=== PATIENT | female | born 1950 | race Caucasian/White ===

== ENCOUNTER 2020-06-06 09:21 | Day surgery (SDC) | payer OTHER ==
--- OUTSIDE RECORDS SUMMARY | 2020-06-06 09:33 | XMS REPORT | Summary of Care ---
:1950 Author Organization [facility] - [facility] Address [address] [place] [address] Care Team Providers Name Role Phone Esther Yanez Primary Care Provider Reason for Visit Reason Comments Pre-op Clearance [facility] Encounter Details Date Type Department Care Team Description 05/15/2020 Telephone [facility] Silvino Pandya M D Pre-op Clearance Cardiology- [address] ([address], [facility]) [address] [place], [place] [phone] [phone] Allergies No Known Allergiesdocumented as of this encounter (statuses as of 05/31/2020) Medications Medication Sig Dispensed Refills Start Date End Date Status metoprolol tartrate 50 Take 50 mg by 0 Active mg tablet mouth 2 (two) times daily. aspirin 81 mg chewable Take 81 mg by 0 Active tablet mouth daily. methIMAzole 10 mg 1 09/17/2018 A ctive tablet documented as of this encounter (statuses as of 05/31/2020) Active Problems Not on filedocumented as of this encounter (statuses as of 05/31/2020) Social History Tobacco Use Types Packs/Day Years Used Date Never Smoker Smokeless Tobacco: Never Used Alcohol Use Drinks/Week oz/Week Comments No Sex Assigned at Date Recorded Not on file documented as of this encounter Last Filed Vital Signs Not on filedocumented in this encounter Miscellaneous Notes Telephone Encounter - Ezekiel Milton - 05/31/2020 11:49 AM CSTPatient is being seen today. Please fax surgery clearance to [phone]. Patient is having two procedures done. Please fax both. elephone Encounter - Mary Mclean MA - 05/15/2020 10:07 AM CSTAttempted to contact patient to schedule cardiac clearance. No answer No voicemail set up. Last seen. Varun follow up/ekg. Left vm to Luz Maria at FOOD SAFETY SCIENTIST office. Will scan request to leemail to store info til patient calls to make appointment. No mychart access. documented in this encounter Plan of Treatment Date Type Specialty Care Team Description 05/31/2020 Office Visit Cardiology Silvino Pandya M D [address] [place] [address] [phone] Health Maintenance Due Date Last Done Comments HEPATITIS C (HCV) SCREEN 1950 Depression Screening 1962 DTaP,Tdap,and Td Vaccines (1 - Tdap) 1969 Breast Cancer Screening (MAMMOGRAM) 1990 COLON CANCER SCREENING ANNUAL FIT/FOBT 2000 COLON CANCER SCREENING FIT DNA EVERY 3 YEARS 2000 COLON CANCER SCREENING SIGMOIDOSCOPY EVERY 5 YEARS 2000 COLONOSCOPY 2000 Colorectal Cancer Screening 2000 Zoster Recombinant Vaccine (SHINGRIX) (1 of 2) 2000 Medicare Wellness Visit 2015 Osteoporosis Screening 2015 PNEUMOCOCCAL VACCINES 65+ (1 of 1 - PPSV23) 2015 INFLUENZA VACCINE (#1) 2020 documented as of this encounter Results Not on filedocumented in this encounter Insurance Payer Benefit Plan / Subscriber ID Effective Dates Phone Addre ss Type Group MEDICARE MEDICARE PART [id number] 2015-[employer] [phone] [address] Medicare A & B t 2 [id number] [place] [phone] documented as of this encounter
--- OUTSIDE RECORDS SUMMARY | 2020-06-06 09:33 | XMS REPORT | Summary of Care ---
:1950 Author Organization [facility] - [facility] Address [address] [place] [address] Care Team Providers Name Role Phone Esther Yanez Primary Care Provider Reason for Visit Reason Comments Pre-op Clearance [facility] Encounter Details Date Type Department Care Team Description 05/15/2020 Telephone [facility] Silvino Pandya M D Pre-op Clearance Cardiology- [address] ([address], [facility]) [address] [place], [place] [phone] Allergies No Known Allergiesdocumented as of this encounter (statuses as of 05/15/2020) Medications Medication Sig Dispensed Refills Start Date End Date Status metoprolol tartrate 50 Take 50 mg by 0 Active mg tablet mouth 2 (two) times daily. aspirin 81 mg chewable Take 81 mg by 0 Active tablet mouth daily. methIMAzole 10 mg 1 09/17/2018 A ctive tablet documented as of this encounter (statuses as of 05/15/2020) Active Problems Not on filedocumented as of this encounter (statuses as of 05/15/2020) Social History Tobacco Use Types Packs/Day Years Used Date Never Smoker Smokeless Tobacco: Never Used Alcohol Use Drinks/Week oz/Week Comments No Sex Assigned at Date Recorded Not on file documented as of this encounter Last Filed Vital Signs Not on filedocumented in this encounter Miscellaneous Notes Telephone Encounter - Mary Mclean MA - 05/15/2020 10:07 AM CSTAttempted to contact patient to schedule cardiac clearance. No answer No voicemail set up. Last seen. Varun follow up/ekg. Left vm to Luz Maria at REMOTELY PILOTED VEHICLE CONTROLLER office. Will scan request to [employer] to store info til patient calls to make appointment. No VisitorsCafehart access. TIC STRENGTH INSPECTOR documented in this encounter Plan of Treatment Health Maintenance Due Date Last Done Comments [...] Addre ss Type Group MEDICARE MEDICARE PART [id number] 2015-[employer] [phone] [address] Medicare A & B t 2 [id number] [place] GARS[place] [id number] documented as of this encounter
--- OUTSIDE RECORDS SUMMARY | 2020-06-06 09:33 | XMS REPORT | Summary of Care ---
:1950 Author Organization [facility] - Health Address [address] [place] [address] Care Team Providers Name Role Phone Esther Yanez Primary Care Provider Encounter Details Date Type Department Care Team Description 05/08/2020 Orders Only [facility] Doctor Unassigned, No [address] [facility] [place] [address] [address] [place] [address] Allergies No Known Allergiesdocumented as of this encounter (statuses as of 05/17/2020) Medications Medication Sig Dispensed Refills Start Date End Date Status metoprolol tartrate 50 Take 50 mg by 0 Active mg tablet mouth 2 (two) times daily. aspirin 81 mg chewable Take 81 mg by 0 Active tablet mouth daily. methIMAzole 10 mg 1 09/17/2018 A ctive tablet documented as of this encounter (statuses as of 05/17/2020) Active Problems Not on filedocumented as of this encounter (statuses as of 05/17/2020) Social History Tobacco Use Types Packs/Day Years Used Date Never Smoker Smokeless Tobacco: Never Used Alcohol Use Drinks/Week oz/Week Comments No Sex Assigned at Date Recorded Not on file documented as of this encounter Last Filed Vital Signs Not on filedocumented in this encounter Plan of Treatment Date Type Specialty Care Team Description 05/31/2020 Office Visit Cardiology Silvino Pandya M D [address] [place] [address] [place] [address] [phone] Health Maintenance Due Date Last Done Comments [...] (#1) 2020 documented as of this encounter Procedures Procedure Name Priority Date/Time Associated Diagnosis Comme nts MEDICAL Routine 05/08/2020 12:01 AM RESTORER PAPER AND PRINTS RELEASE/CLEARANCE FORMS documented in this encounter Results Not on filedocumented in this encounter Insurance Payer Benefit Plan / Subscriber ID Effective Dates Phone Addre ss Type Group MEDICARE MEDICARE PART [id number] 2015-[employer] [phone] [facility] Medicare A & B t 2 [id number] [place] [phone] documented as of this encounter
--- OUTSIDE RECORDS SUMMARY | 2020-06-06 09:33 | XMS REPORT | Continuity of Care Document ---
:1950 Author Organization [facility] t Address [address] [place] [address] Care Team Providers Name Role Phone Mumtaz COYNE Attending Clinician Problems This patient has no known problems. Allergies, Adverse Reactions, Alerts This patient has no known allergies or adverse reactions. Medications This patient has no known medications. Procedures This patient has no known procedures. Encounters Start End Encounter Admission Attending Care Care Encounter Source Date/Time Date/Time Type Type Clinicians Facility Department ID 2020-05-15 2020-05-15 Telephone SRIRAM Pandya [id number] 00:00:00 00:00:00 Silvino Quinteros [id number] Starla [id number] Rosamaria [id number] [address]al 059 Building Results This patient has no known results.
--- OUTSIDE RECORDS SUMMARY | 2020-06-06 09:34 | XMS REPORT | Summary of Care ---
:1950 Author Organization [facility] - Health Address [address] [place] [address] Care Team Providers Name Role Phone Esther Yanez Primary Care Provider Encounter Details Date Type Department Care Team Description 05/31/2020 Orders Only [facility] Doctor Unassigned, No [address] [facility] [place] [address] [address] [place] [id number] Allergies No Known Allergiesdocumented as of this [...] Assigned at Date Recorded Not on file COVID-19 Exposure Response Date Recorded In the last month, have you been in contact with No / Unsure 05/31/2020 3:16 PM VENDING MACHINE COLLECTOR someone who was confirmed or suspected to have Coronavirus / COVID-19? documented as of this encounter Last Filed Vital Signs Not on filedocumented in this encounter Plan of Treatment Health [...] Name Priority Date/Time Associated Diagnosis Comme nts ASSIGNMENT OF BENEFITS Routine 05/31/2020 3:19 PM VENDING MACHINE COLLECTOR CONSENT/REFUSAL FOR Routine 05/31/2020 3:19 PM DIAGNOSIS AND TREATMENT VENDING MACHINE COLLECTOR documented in this encounter Results Not on filedocumented in this encounter Insurance Payer Benefit Plan / Subscriber ID Effective Dates Phone Addre ss Type Group MEDICARE MEDICARE PART [id number] 2015-[employer] [phone] [address] [facility] Medicare A & B t 2 [id number] [place] [id number] documented as of this encounter
--- OUTSIDE RECORDS SUMMARY | 2020-06-06 09:34 | XMS REPORT | Summary of Care ---
:1950 Author Organization [facility] Address [address] [place] [address] Care Team Providers Name Role Phone Esther Yanez Primary Care Provider Alexandria Hoff Primary Care Provider Reason for Visit Reason Comments Pre-op Clearance [facility] Encounter Details Date Type Department Care Team Description 05/15/2020 Telephone [facility] Silvino Pandya M D Pre-op Clearance Cardiology- [address] ([address], [facility]) [address] [place], [place] [phone] Allergies No Known Allergiesdocumented as of this encounter (statuses as of 06/02/2020) Medications Medication Sig Dispensed Refills Start Date End Date Status aspirin 81 mg Take 81 mg 0 Activ e chewable tablet by mouth daily. metoprolol Take 50 mg 0 05/31/2020 Discont inued tartrate 50 mg by mouth 2 (Dis continued by tablet (two) times another clinician) daily. methIMAzole 10 mg 1 09/17/2018 05/31/2020 Discontinued tablet (Therapy completed) documented as of this encounter (statuses as of 06/02/2020) Active Problems Not on filedocumented as of this encounter (statuses as of 06/02/2020) Social History Tobacco Use Types Packs/Day Years Used Date Never Smoker Smokeless Tobacco: Never Used Alcohol Use Drinks/Week oz/Week Comments No Sex Assigned at Date Recorded Not on file COVID-19 Exposure Response Date Recorded In the last month, have you been in contact with No / Unsure 05/31/2020 3:16 PM RESEARCH STATISTICIAN someone who was confirmed or suspected to have Coronavirus / COVID-19? documented as of this encounter Last Filed Vital Signs Not on filedocumented in this encounter Miscellaneous Notes Telephone Encounter - Ezekiel Milton - 06/02/2020 12:23 PM CSTRefaxed to [facility]ICE [facility] RN doctor & received confirmation 06/02. elephone Encounter - Myesha Vasquez RN - 06/02/2020 10:54 AM CSTSam is faxing it again. elephone Encounter - Ezekiel Milton - 06/02/2020 10:22 AM CSTGYN office is requesting clearance to be re-faxed talib. elephone Encounter - Myesha Vasquez RN - 05/31/2020 2:28 PM CSTWill fax once the patient is seen elephone Encounter - Ezekiel Milton - 05/31/2020 11:49 AM RESEARCH STATISTICIAN Patient is being seen today. Please fax surgery clearance to [phone]. Patient is having two procedures done. Please fax both. elephone Encounter - Mary Mclean MA - 05/15/2020 10:07 AM CSTAttempted to contact patient to schedule cardiac clearance. No answer No voicemail set up. Last seen. Varun follow up/ekg. Left vm to Luz Maria at [employer]ICE [employer] RN office. Will scan request to [email or web address] to store info til patient calls to make appointment. No mychart access. documented in this encounter Plan of Treatment Health Maintenance Due Date Last Done Comments HEPATITIS C (HCV) SCREEN 1950 DTaP,Tdap,and Td Vaccines (1 - 1969 Tdap) Breast Cancer Screening 1990 (MAMMOGRAM) COLON CANCER SCREENING ANNUAL 2000 FIT/FOBT COLON CANCER SCREENING FIT DNA 2000 EVERY 3 YEARS COLON CANCER SCREENING 2000 SIGMOIDOSCOPY EVERY 5 YEARS COLONOSCOPY 2000 Colorectal Cancer Screening 2000 Zoster Recombinant Vaccine 2000 (SHINGRIX) (1 of 2) Medicare Wellness Visit 2015 Osteoporosis Screening 2015 PNEUMOCOCCAL VACCINES 65+ (1 of 1 2015 - PPSV23) INFLUENZA VACCINE (#1) 2020 Postponed from 01/18/2020 (Refused) Depression Screening 05/31/2021 05/31/2020 documented as of this encounter Results Not on filedocumented in this encounter Insurance Payer Benefit Plan / Subscriber ID Effective Dates Phone Addre ss Type Group MEDICARE MEDICARE PART [id number] 2015-[employer] [phone] [address] [address] [facility] Medicare A & B t 2 [id number] [place] [phone] documented as of this encounter
--- OUTSIDE RECORDS SUMMARY | 2020-06-06 09:34 | XMS REPORT | Summary of Care ---
:1950 Author Organization [facility] Address [address] [place] [address] Care Team Providers Name Role Phone Alexandria Hoffy Primary Care Provider Reason for Visit Reason Comments Follow-up Re Establish Care Surgery Clearance [facility] Mcbride[facility] Ekg Done today in Office Encounter Details Date Type Department Care Team Description 05/31/2020 Office Visit [facility] Silvino Pandya M D Essential hypertension (Primary Dx); Cardiology- [address] Preop cardiovascular exam; [address] [place] [address] [place], [place] [phone] Allergies No Known Allergiesdocumented as of this encounter (statuses as of 05/31/2020) Medications Medication Sig Dispensed Refills Start Date End Date Status aspirin 81 mg Take 81 mg 0 Activ e chewable tablet by mouth daily. lisinopriL 40 mg Take 40 mg 0 Ac tive tablet by mouth daily. metoprolol Take 50 [...] with No / Unsure 05/31/2020 3:16 PM HAND STRAIGHTENER someone who was confirmed or suspected to have Coronavirus / COVID-19? documented as of this encounter Last Filed Vital Signs Vital Sign Reading Time Taken Comments Blood Pressure 135/90 05/31/2020 3:32 PM HAND STRAIGHTENER Pulse 100 05/31/2020 3:32 PM HAND STRAIGHTENER Temperature - - Respiratory Rate 20 05/31/2020 3:32 PM HAND STRAIGHTENER Oxygen Saturation 96% 05/31/2020 3:32 PM HAND STRAIGHTENER Inhaled Oxygen Concentration - - Weight 67.5 kg (148 lb 14.4 oz) 05/31/2020 3:32 PM HAND STRAIGHTENER Height 160 cm (5' 3") 05/31/2020 3:32 PM HAND STRAIGHTENER Body Mass Index 26.38 05/31/2020 3:32 PM HAND STRAIGHTENER documented in this encounter Progress Notes Silvino Pandya MD - 05/31/2020 3:00 PM CST CARDIOLOGY CLINIC NOTE 05/31/2020 Reason for Referral/Presenting Complaint: abnormal EKG, preop cardiac evaluation PCP: Alexandria Mcbride MD History of Present Illness: Cecily Santo is a 69 years old female with history of HTN. She takes lisinopril with good control. Her father has CAD s/p PCI and valve replacement in his 80s. She was here for abnormal EKG in 2019. ECHO was unremarkable. Denies chest pain, SOB, edema or syncope. She is going to have pelvic surgery. Review of Systems: General: (-) fever, (-) chills, (-) weight change, (-) dizziness, (-) fatigue Skin: (-) rash HEENT: (-) headache, (-) change in vision Neck: (-) difficulty swallowing Heme: negative Resp: (-) cough, (-) dyspnea on exertion Cardio: (-) chest pain, (-) palpitations, (-) syncope GI: (-) vomiting, (-) diarrhea : negative Endo: (-) diabetes, (-) thyroid disease Neuro: (-) numbness, (-) tingling, (-) weakness Back: (-) pain OZ: (-) muscle pain, (-) claudication Psych: (-) anxiety, (-) depression Past Medical History: Past Medical History: Diagnosis Date Arthritis Hypertension Current Medications: Current Outpatient Medications Medication Sig Dispense Refill lisinopriL 40 mg tablet Take 40 mg by mouth daily. aspirin 81 mg chewable tablet Take 81 mg by mouth daily. No current facility-administered medications for this visit. Social History: Social History Socioeconomic History Marital status: Single Spouse name: Not on file Number of children: Not on file Years of education: Not on file Highest education level: Not on file Occupational History Not on file Social Needs Financial resource strain: Not on file Food insecurity Worry: Not on file Inability: Not on file Transportation needs Medical: Not on file Non-medical: Not on file Tobacco Use Smoking status: Never Smoker Smokeless tobacco: Never Used Substance and Sexual Activity Alcohol use: No Drug use: No Sexual activity: Not on file Lifestyle Physical activity Days per week: Not on file Minutes per session: Not on file Stress: Not on file Relationships Social connections Talks on phone: Not on file Gets together: Not on file Attends taoism service: Not on file Active member of club or organization: Not on file Attends meetings of clubs or organizations: Not on file Relationship status: Not on file Intimate partner violence Fear of current or ex partner: Not on file Emotionally abused: Not on file Physically abused: Not on file Forced sexual activity: Not on file Other Topics Concern Not on file Social History Narrative Not on file Family History Family History Problem Relation Age of Onset Arthritis Mother Hypertension Father Diabetes Father [place] (myocardial infarction) Father Valve replacement PCI Physical Examination: BP 135/90 (BP Location: Left arm, Patient Position: Sitting, BP CUFF SIZE: Adult Small) | Pulse 100 | Resp 20 | Ht 5' 3" (1.6 m) | Wt 148 lb 14.4 oz (67.5 kg) | SpO2 96% | BMI 26.38 kg/m Constitutional: alert and oriented x 3 (person, place and date/time); no apparent distress ENT: normocephalic atraumatic, supple, no lymphadenopathy, no bruits, no JVD Lungs: clear to auscultation bilaterally Cardiovascular: S1, S2 normal, regular; 2/6 SM GI: soft; non-tender; non-distended; normoactive bowel sounds : not examined Musculoskeletal: Extremities: no clubbing, cyanosis, or edema Skin: no rashes Neuro: no focal deficits Cardiovascular testing: Assessment/Plan: ICD-10-CM ICD-9-CM 1. Essential hypertension I10 401.9 2. Preop cardiovascular exam Z01.810 V72.81 3. Abnormal EKG R94.31 794.31 Preop cardiac risk assessment--She has risk factors of HTN, age, and family history. ECHO showed normal LVEF. Her cardiac risk is low to intermediate. Patient was counseled for lifestyle modifications including: diet and exercise. EKG--05/31/2020--reviewed by me Normal sinus rhythm, LAE, LAD, IRBBB, possible anteroseptal infarct ECHO 11/23/2018--reviewed with patient Ejection Fraction = 60-65%. Diastolic function is impaired relaxation. The left ventricular wall motion is normal. Estimated RA pressure is 0-5 mmHg. Insufficient Tricuspid regurgitation jet to estimate RVSP. HTN--well controlled with lisinopril. Thank you for allowing us to participate in the care of your patient. Please feel free to contact usfor any questions or if we can be of further assistance. Silvino Pandya MD, FAC, TUCKER Creeler, Division of Cardiology [facility] documented in this encounter Plan of Treatment Name Type Priority Associated Diagnoses Order S chedule EKG-12 LEAD HEART STATION Routine Preop cardiovascular exam O rdered: 05/31/2020 ROUTINE Health Maintenance Due Date Last Done Comments [...] Results Not on filedocumented in this encounter Visit Diagnoses Diagnosis Essential hypertension - Primary Unspecified essential hypertension Preop cardiovascular exam Pre-operative cardiovascular examination Abnormal EKG Nonspecific abnormal electrocardiogram ( ECG) (EKG) documented in this encounter Insurance Payer Benefit Plan / Subscriber ID Effective Dates Phone Addre ss Type Group MEDICARE MEDICARE PART [id number] 2015-[employer] [phone] [address] Medicare A & B t 2 [id number] [place] G[place] [id number] documented as of this encounter
--- OUTSIDE RECORDS SUMMARY | 2020-06-06 09:34 | XMS REPORT | Summary of Care ---
:1950 Author Organization [facility] Address [address] [place] [address] Care Team Providers Name Role Phone Esther Yanez Primary Care Provider Alexandria Hoff Primary Care Provider Reason for Visit Reason Comments Pre-op Clearance [facility] Encounter Details Date Type Department Care Team Description 05/15/2020 Telephone [facility] Silvino Pandya M D Pre-op Clearance Cardiology- [address] ([address], [facility]) [address] [place], [place] [phone] Allergies No Known Allergiesdocumented as of this [...] with No / Unsure 05/31/2020 3:16 PM PST SUPERVISOR someone who was confirmed or suspected to have Coronavirus / COVID-19? documented as of this encounter Last Filed Vital Signs Not on filedocumented in this encounter Miscellaneous Notes Telephone Encounter - Ezekiel Milton - 06/02/2020 10:22 AM CSTGYN office is requesting clearance to be re-faxed talib. elephone Encounter - Myesha Vasquez RN - 05/31/2020 2:28 PM CSTWill fax once the patient is seen elephone Encounter - Ezekiel Milton - 05/31/2020 11:49 AM CSTPatient is being seen today. Please fax surgery clearance to [phone]. Patient is having two procedures done. Please fax both. SUPERVISOR Telephone Encounter - Mary Mclean MA - 05/15/2020 10:07 AM CSTAttempted to contact patient to schedule cardiac clearance. No answer No voicemail set up. Last seen. Nees follow up/ekg. Left vm to Luz Maria at TOLL BRIDGE ATTENDANT office. Will scan request to [email or web address] to store info til patient calls to make appointment. [facility]. SUPERVISOR documented in this encounter Plan of Treatment [...] Addre ss Type Group MEDICARE MEDICARE PART [id number] 2015-[employer] [phone] [address] Medicare A & B t 2 [id number] [place] [phone] documented as of this encounter
--- OUTSIDE RECORDS SUMMARY | 2020-06-06 09:34 | XMS REPORT | Summary of Care ---
:1950 Author Organization [facility] Address [address] [place] [id number] Care Team Providers Name Role Phone Alexandria Hoffy Primary Care Provider Reason for Visit Reason Comments Follow-up Re Establish Care Surgery Clearance [facility] Ekg Done today in Office Encounter Details Date Type Department Care Team Description 05/31/2020 Office Visit [facility] Silvino Pandya M D Essential hypertension (Primary Dx); Cardiology- [address] Preop cardiovascular exam; [address] [place] [address] [place], [place] [phone] Allergies No Known Allergiesdocumented as of this [...] with No / Unsure 05/31/2020 3:16 PM SPONGE FISHERMAN someone who was confirmed or suspected to have Coronavirus / COVID-19? documented as of this encounter Last Filed Vital Signs Vital Sign Reading Time Taken Comments Blood Pressure 135/90 05/31/2020 3:32 PM SPONGE FISHERMAN Pulse 100 05/31/2020 3:32 PM SPONGE FISHERMAN Temperature - - Respiratory Rate 20 05/31/2020 3:32 PM SPONGE FISHERMAN Oxygen Saturation 96% 05/31/2020 3:32 PM SPONGE FISHERMAN Inhaled Oxygen Concentration - - Weight 67.5 kg (148 lb 14.4 oz) 05/31/2020 3:32 PM SPONGE FISHERMAN Height 160 cm (5' 3") 05/31/2020 3:32 PM SPONGE FISHERMAN Body Mass Index 26.38 05/31/2020 3:32 PM SPONGE FISHERMAN documented in this encounter Progress Notes Silvino [...] file Gets together: Not on file Attends uatsdin service: Not on file Active member of [...] Onset Arthritis Mother Hypertension Father Diabetes Father [place] (myocardial infarction) Father Valve replacement PCI Physical [...] further assistance. Silvino Pandya MD, FAC, TUCKER Batch Blender, Division of Cardiology [facility] documented in this encounter Plan of [...] Addre ss Type Group MEDICARE MEDICARE PART [id number] 2015-[place] [phone] [address] Medicare A & B t 2 [id number] [place] [phone] documented as of this encounter
[2020-06-06] MEDS ORDERED: Ringers Lactate 1,000 ML IV ONE (10:12)
[2020-06-06] MEDS ORDERED: FENTANYL CITR 100 MCG/2 ML ONE (11:03)
[2020-06-06] MEDS ORDERED: propofoL 200 MG/20 ML VIAL IV ONE (11:03)
[2020-06-06] MEDS ORDERED: MIDAZOLAM HCL 2 MG/2 ML INJ ONE (11:04)
[2020-06-06] MEDS ORDERED: LIDOCAINE 2% MPF 5 ML VIAL ONE (11:04)
[2020-06-06] MEDS ORDERED: ONDANSETRON 4 MG/2 ML VIAL ONE (11:12)
[2020-06-06] MEDS: LIDOCAINE 1% W/EPI 1:100,000 MDV 50 ML VIAL ONE ×2 (11:30→11:37)
[2020-06-06 12:34] VITALS: O2SAT 100
--- NOTE | 2020-06-06 12:55 | OP ---
Date of Procedure: 06/06/2020 Surgeon: Judith Mcbride MD Gamma Operator: None. Preoperative Diagnosis: Postmenopausal bleeding and endometrial thickening. Postoperative Diagnosis: Postmenopausal bleeding, prolapse and endometrial polyp. Procedures Performed: Diagnostic hysteroscopy converted to operative hysteroscopy, polypectomy, and D and C, MyoSure Lite was used for the polypectomy as the polyp was large. Anesthesia: MAC plus paracervical block. Specimens: Endometrial curettings and endometrial polyp. Complications: No complications. Drains: No drains. Condition: Stable. Findings: Her POP-Q was 0, 0, +1, 5, thin, 8, -1, 0, -3. Large posterior wall prolapse with apical prolapse that was most significant. On the endometrial cavity findings, there was a large endometrial polyp arising from the fundus, post erior wall of the endometrial cavity traversing the entire uterine canal and protruding into the cerv ical canal. The endometrium appeared to be slightly irregular. No other masses were seen. This was a solitary P ap polyp. After evaluation with transvaginal ultrasound, her endometrium was found to be thickened, so she was consented for endometrial polypectomy, D and C at the hospital so she was consented here today and ta kleber back to the OR placed in supine fashion on the operating table. MAC was given. Placed in a dors al lithotomy position. Vulva, vagina were prepped and draped in a sterile fashion. Speculum placed to expose the cervix. Anterior lip grasped, injected with 1% lidocaine mixed with 1:100,000 epinephr ine, 10 cc in 4 and 8 o'clock positions. Another 3 cc was given for paracervical block. Two Allis c lamps were placed on the anterior lip and the external os was dilated with the tip of a hemostat. en using a diagnostic SlimLine hysteroscope, cervical canal was traversed and uterine cavity was ente red. Once inside the uterine cavity, there was large polyp as discussed in the findings. No other a bnormalities. Scope was removed and this was changed to an operative hysteroscope with MyoSure Lite attached. Once this device was attached and primed, then entered into the cervical canal and started to remove the polyp from the tip of the polyp to its base. The entire polyp was removed and the bas e was hemostatic. Endometrial curettings were performed with MyoSure Lite device itself in all 4 wal ls gently. Adequate tissue was obtained. There was minimal bleeding. Hemostasis was adequate. All instruments were removed. Instrument and sponge counts were done and were correct at the end of the case. The patient tolerated procedure. She was recovered from anesthesia in the OR and taken to [facility] in stable condition. She will have a 1-week followup appointment with md. Plan to discharge home. Regular diet. No prescription. JENNA/DONALD Voice ID: [id number] Report ID: [id number]
[2020-06-06] MEDS ORDERED: IBUPROFEN 200 MG TAB PO ONE (13:04)
[2020-06-06 13:17] VITALS: BP 116/55; TEMP 97.3
== END 2020-06-06 13:45 | disposition home or self-care (01) ==
LOC: OR 09:21
PROVIDERS: ATTEND Obstetrics & Gynecology
PROC: 0UDB8ZX Extraction of Endometrium, Via Natural or Artificial Opening Endoscopic, Diagnostic (ICD-10-PCS; 2020-06-06)
PROC: 0UB98ZX Excision of Uterus, Via Natural or Artificial Opening Endoscopic, Diagnostic (ICD-10-PCS; principal; 2020-06-06 10:30)
DX: N84.0 Polyp of corpus uteri (principal); N93.9 Abnormal uterine and vaginal bleeding, unspecified; N39.46 Mixed incontinence; I10 Essential (primary) hypertension
CPT/HCPCS: 58558; 88305; U0002; J2704; J2250; J7120; J2405; J3010

== ENCOUNTER 2020-07-11 12:01 | Day surgery (SDC) | payer OTHER ==
[2020-07-07 18:06] LABS: Absolute Lymphocytes (CBC) 2.3 K/uL (0.7-4.9); Basophils % 0.6 % (0-1.3); Hematocrit 41.8 % (36.0-45.0); Lymphocytes % 24.6 % (15.3-44.8); MPV 9.1 fL (7.6-11.3); Protime INR 1.04
[2020-07-07 19:41] LABS: Urine Appearance CLEAR; Urine Bilirubin NEGATIVE (NEG); Urine Blood NEGATIVE (NEG); Urine Color YELLOW; Urine Glucose NEGATIVE (NEG); Urine Protein NEGATIVE (NEG); Urine pH 6.5 (5.0-7.0)
[2020-07-07 19:46] LABS: Urine Microscopic Reflex NO UMIC
[2020-07-11] MEDS ORDERED: Ringers Lactate 1,000 ML IV ONE ×2 (13:50→18:05)
[2020-07-11] MEDS ORDERED: FENTANYL CITR 100 MCG/2 ML ONE ×2 (15:54→19:17)
[2020-07-11] MEDS ORDERED: propofoL 200 MG/20 ML VIAL IV ONE (15:54)
[2020-07-11] MEDS ORDERED: MIDAZOLAM HCL 2 MG/2 ML INJ ONE (15:55)
[2020-07-11] MEDS ORDERED: ROCURONIUM 50 MG/5 ML VIAL IV ONE (15:55)
[2020-07-11] MEDS ORDERED: LIDOCAINE 1% MPF 2 ML AMPULE ONE (15:55)
[2020-07-11] MEDS ORDERED: HEPARIN 5000 UNIT/ML 1 ML VIAL ONE ×2 (16:43)
[2020-07-11] MEDS ORDERED: NA CHLORIDE 0.9% 100 ML IV ONE (16:53)
[2020-07-11] MEDS ORDERED: VASOPRESSIN 20 UNIT/ML VIAL ONE (16:54)
[2020-07-11] MEDS ORDERED: CEFAZOLIN/SWI 1gm 1 GM/10 ML SYR ONE (16:54)
[2020-07-11] MEDS: CEFAZOLIN/SWI 1gm 2 GM/20 ML SYR ONE ×2 (17:10→17:15)
[2020-07-11] MEDS ORDERED: dexAMETHasone 10 MG/ML VIAL ONE (17:20)
[2020-07-11] MEDS ORDERED: KETOROLAC 30 MG/ML INJ ONE (18:42)
[2020-07-11] MEDS ORDERED: NEOSTIGMINE 1 MG/ML -5 ML ONE (20:09)
[2020-07-11] MEDS ORDERED: GLYCOPYRROLATE 0.2 MG/ML SYR ONE (20:09)
[2020-07-11] MEDS ORDERED: PROMETHAZINE INJ 25 MG/ML AMP IV PRN (20:36)
[2020-07-11] MEDS ORDERED: ONDANSETRON 4 MG/2 ML VIAL IV PRN (20:36)
[2020-07-11] MEDS ORDERED: MORPHINE 2 MG/ML SYR IV PRN (20:36)
[2020-07-11] MEDS ORDERED: ESTRADIOL VAG SCH (20:45)
--- NOTE | 2020-07-11 20:45 | P.BOP ---
Preoperative diagnosis: stage 2 incomplete uterovaginal prolapse, DANIEL, rectocele Postoperative diagnosis: same and anterior prolapse, post enterocele Primary procedure: A/P repairs w post enterocele,perineorrhapy,RT SSLF hysteropexy,MUS, cysto Derrick Engineer: Kayla Condon Estimated blood loss: 100 Specimen: none Findings: 0/+1/+1/5/mod/8/-1/0/-2, posterior enterocele Anesthesia: General Complications: None Drain(s): Urinary catheter Implants: TVT-O Fluids & blood products: ebl 100 Transferred to: Recovery Room Condition: Good
[2020-07-11] MEDS: HYDROMORPHONE HCL 1 MG/ML INJ ONE ×2 (20:55→21:00)
[2020-07-11] MEDS ORDERED: Ringers Lactate 1,000 ML IV SCH (21:00)
[2020-07-11 21:04] VITALS: O2SAT 97
[2020-07-11 23:30] VITALS: BMI 26.9
[2020-07-12] MEDS: ACETAMINOPHEN 500 MG TAB PO PRN ×3 (00:45→11:49)
[2020-07-12] MEDS ORDERED: MORPHINE 4 MG/ML SYR ONE (01:13)
[2020-07-12 06:18] LABS: Absolute Lymphocytes (CBC) 1.2 K/uL (0.7-4.9); Basophils % 0.5 % (0-1.3); Lymphocytes % 8.7 % (15.3-44.8); MPV 9.3 fL (7.6-11.3); RBC Red Blood Cell Count 3.68 M/uL (3.86-4.86)
[2020-07-12 06:32] LABS: Potassium 3.7 mmol/L (3.5-5.1)
[2020-07-12] MEDS ORDERED: MORPHINE 4 MG/ML SYR IV PRN (07:31)
[2020-07-12 07:55] LABS: Blood Morphology Comment NOT SEEN (NOT SEEN); Platelet Estimate ADEQ; White Blood Cell Scan OK (OK)
[2020-07-12 08:04] VITALS: BP 134/78; TEMP 98.5
[2020-07-12] MEDS ORDERED: NA CHLORIDE 0.9% 500 ML IV ONE (08:06)
[2020-07-12] MEDS ORDERED: lisinopriL 20 MG TAB PO SCH (09:00)
[2020-07-12] MEDS ORDERED: METHIMAZOLE 5 MG PO SCH (09:00)
--- NOTE | 2020-07-14 11:28 | OP ---
Date of Procedure: 07/11/2020 Surgeon: Judith Mcbride MD [employer]itary Landfill Supervisor: Kayla Condon. Preoperative Diagnoses: Incomplete uterovaginal prolapse, rectocele, stress incontinence. Postoperative Diagnoses: Incomplete uterovaginal prolapse, anterior and posterior wall prolapse, pos terior enterocele and stress urinary incontinence. Procedures Performed: Right sacrospinous ligament fixation, colpopexy through the posterior approach , anterior and posterior repairs, mid urethral sling, posterior enterocele repair, perineorrhaphy, an d cystoscopy. Estimated Blood Loss: Less than 100. Specimens: No specimens. Complications: No complications. Drains: Shafer catheter and vaginal packing. Findings: Pop-Q 0, +1, +1, 5, moderate, 8, -1, 0, -2. Significant anterior defect noted, then what was appreciated in the office exam. Anterior repair was performed as a site-specific repair as there was a proximal precervical fascia de fect detachment from the apex of the cervix. This was sutured together with PDS after reducing the a pical enterocele. Posterior repair was done from the seel-qn-rqal fashion as the rectovaginal septal reattachment to th e cervix posteriorly due to the proximal detachment was placing too much tension on the sacrospinous fixation. PDS sutures were used for this and perineal body reconstruction was performed via 2-0 Vicr yl. No graft use. The patient is a 70-year-old female, who presented with prolapse. She had a transvaginal ultrasound performed because she has complaints of right lower quadrant pain. No postmenopausal bleeding. Endo metrium appeared to be thickened to 1.4 cm, so she had a hysteroscopy and endometrial polyp was found and polypectomy was performed and this was negative for any malignancy or atypia. So, we discussed about the different options for treatment of her prolapse as she was symptomatic. She declined pessa ry management. She did not want to have any self maintenance long-term. Abdominal vaginal repairs w ere discussed and abdominal repair with sacrocolpopexy mesh versus vaginal repair, especially since t he posterior defect was the largest one. There was no significant anterior defect as noted in the of fice exam. Vaginal repair was preferred and she was consented for this. We also explained that if t here is any anterior defect, I would repair that. Aspirin was to be stopped 5 days prior to the proc edure. Then, she also had mixed incontinence, urodynamic evaluation was performed and there was sign ificant stress urinary incontinence that was identified, so we went ahead to consent her for mid uret hral sling. After discussing all the benefits and risks, she had done Kegel's exercises and this has not helped her. She also had medical clearance and consented. Description Of Procedure: She brought was to the hospital, 2 g of Ancef was given. She was placed i n supine position on the operating table. After general anesthesia was given, she was placed in dors al lithotomy position using Kelvin stirrups. Lower abdomen, vulva, vagina, and perineum prepped and d raped in a sterile fashion. Exam under anesthesia showed defect as dictated in the findings. Shafer placed to drain the bladder and retracted superiorly with a Aurelia clamp. The cervix was held w ith 2 Allis clamps. Distal most part of the cervix was grasped in the midline with the help of an Al lis, and the proximal and distal anterior fascial defect was held with the Allis clamp. This was at least 5 cm between the ureterovesical junction and the proximal part of the fascial defect, and then from there the fascial defect was at least another 3-4 cm. So, this area was injected in the midline via dilute vasopressin and opened up with the scalpel and dissected the bladder down and the enteroc red down here and reduced it raising nice epithelial flaps on both sides. Then, once the fascial edg e was identified, the cervix was exposed and the connective tissue was well exposed at the proximal m ost part. Then, after reducing the enterocele with the help of a 3-0 Monocryl in 2 pursestring sutur es, then the fascia was reattached to the pericervical ring with PDS sutures 2-0. 4 sutures were morris joe, each of them was in 2 [id number]. Then, once the fascial defect was closed, the anterior w all appeared to be restored without any defect that was evident. Then, the vaginal epithelium was tr immed laterally and the incision was closed in a transverse fashion with a 2-0 Vicryl in a continuous running horizontal mattress fashion. Then, went to the posterior aspect, there was a proximal detachment, however, a traditional posterior repair was performed. Allis clamps were placed on both ends of the hymen. Then, again in the midline about 4 cm proximally , dilute vasopressin was injected. Then, a quadrilateral incision was made and epithelium was denude d, connective tissue was exposed. The flaps were raised on both sides. The perineal body was also i ncised in a triangular fashion and connected to the top incision. The perineal body was also dissect ed just to expose the lateral parts of the deep transverse perinei, the perineal body structures. Th en, went on superiorly after raising the flaps and dissecting the rest of the posterior wall, posteri or enterocele was identified very thin here. This was opened up and then after visualizing a good cl osure was done with 3-0 Monocryl in 2 rows of 2 purse-string sutures. Once this was fully reduced, t hen the pericervical ring posteriorly was exposed and the fascia was sutured with a 2-0 PDS from a si de-to-side fashion as attention would be too much if this was reattached to the pericervical ring. T hen, the sacrospinous suture laterally the right pararectal space was opened up and the ischial spine was palpated, sweeping medially and posteriorly towards the coccyx. The sacrospinous ligament was o pened up and the bowel dissected medially. Two bites were placed on the sacrospinous ligament with t he Capio device in the center and then slightly towards the spine, both at least 2 fingers basis away from the spine. These sutures were held on clamps and then the pericervical ring posterior tissue w here the uterosacral would be attached was picked up and then the Prolene sutures were placed through this to attached from the sacrospinous ligament. The laser kept superiorly vaginal closure of the e pithelium was started at the top with 2-0 Vicryl in a continuous running fashion. After closing at l east 3 cm, then the sacrospinous sutures were tied down. Then, the perineal body reconstruction was performed as this lift was adequate. The perineal body was reconstructed with the help of 2-0 Vicryl sutures. Rectovaginal exam was performed while this was being done. 2 sutures were placed the PDS suture, as it was close it was reattached with the perineal body, so there was a continue without any breakage. Then, went all the way to the perianal area. The vaginal epithelium was closed all the way to the level of the hymen and then 3-0 Vicryl was used to close the subcutaneous tissues in subcuticular fashion, brought up and tied inside the vestibule. Rectal exam was performed, no foreign body, no suture. Mid urethral area was picked up with help of 2 Allis clamps and infiltrated with dilute vasopressin. An incision 1 cm made in the mid urethral area with the help of a scalpel. Then, dissection perform ed to the ipsilateral obturator spaces with the help of Metzenbaum scissors. Once the track was crea natalia obturator membrane was perforated. The track was expanded and first dissection on the right side than on the left side was done, hugging the inferior pubic ramus at a 45-degree angle to the horizon marsha and vertical planes, the dissection was performed. Then, wing guide was placed, a spike was pass ed without any problems hugging the ramus and coming out exiting at the typical point. Same thing on the opposite side was done. The sling was adjusted in a tension-free method using Metzenbaum scisso rs in the middle and the plastic dilator sheath were all cut and the mesh was tensioned and placed. The mesh was cut, flush with the skin on both sides. Then, vaginal closure was performed with 3-0 Vi cryl in a continuous running fashion after irrigating with antibiotic solution. The Dermabond was used to close the skin incisions. Shafer was removed. The cystoscopy was performed with a 30 degree lens and normal saline. Both ureteric orifices well visualized. Good jets of urin e from here. No evidence of any trauma to the bladder, foreign body, or any tumor. The base of the bladder trigone, the dome of the bladder lateral wall inspected carefully. The urethra was visualize d, was being taken out and then the bladder was drained. Shafer was replaced. Vaginal packing was pl aced. The patient was recovered from anesthesia. Instrument, needle, and sponge counts were correct in the case. EBL was 100 mL. The patient is slightly oozing throughout the procedure, most likely from her aspirin. Then, we gave heparin subcu 5000 prior to the procedure. SCDs were on the entire procedure. She was given precautions for prevention of blood clots as she was complaining of poor ci rculation. She has a voiding trial in the morning. Vaginal packing was to be removed and she will follow up with us in a week and 6 weeks. JENNA/DONALD Voice ID: [id number] Report ID: [id number]
== END 2020-07-12 13:15 | disposition home or self-care (01) ==
LOC: OR 12:01 → 2ND-WC 21:21 → OR 07-12 13:15
PROVIDERS: ATTEND Obstetrics & Gynecology
PROC: 0UQF7ZZ Repair Cul-de-sac, Via Natural or Artificial Opening (ICD-10-PCS; 2020-07-11)
PROC: 0TSD0ZZ Reposition Urethra, Open Approach (ICD-10-PCS; 2020-07-11)
PROC: 0HQ9XZZ Repair Perineum Skin, External Approach (ICD-10-PCS; 2020-07-11)
PROC: 0USG7ZZ Reposition Vagina, Via Natural or Artificial Opening (ICD-10-PCS; principal; 2020-07-11 13:30)
DX: N81.2 Incomplete uterovaginal prolapse (principal); N81.6 Rectocele; N39.3 Stress incontinence (female) (male); I10 Essential (primary) hypertension; N95.2 Postmenopausal atrophic vaginitis; R10.31 Right lower quadrant pain; Z20.822 Contact with and (suspected) exposure to COVID-19; E03.9 Hypothyroidism, unspecified
CPT/HCPCS: 85025 ×2; 80048; 36415 ×2; 86900; 86850; 85610; 86901; 85730; 81003; 94010; 57282; 57268; 57288; 56810; U0002; J2704; J1644; J2250; J3010 ×2; J1100; J2001; J1170; J2710; J0690 ×2; J7120 ×3; J7040; J2270

== ENCOUNTER 2024-08-25 10:06 | Inpatient (IN) | payer OTHER ==
--- OUTSIDE RECORDS SUMMARY | 2024-08-25 10:10 | XMS REPORT | Continuity of Care Document ---
Author Name Unknown Address [address] [place] [address] [facility] Address [address] [place] [address] Care Team Providers Care Chemical Dependency Counselor Name Role Phone Nidia COYNE, [facility] Primary Care Physician [phone] [email or web address]_S Attending Clinician Unavaila MAURIZIO Holliday Attending Clinician Unavailable Silvino Quintanilla MD Attending Clinician [phone] SILVINO QUINTANILLA Attending Clinician Unavailable MARIA G BROWNE Attending Clinician Unavailable Maria G Pereira Attending Clinician [phone] [email or web address]_S Admitting Clinician UnavailSILVINO Wilkins Admitting Clinician Unavailable MARIA G BROWNE Admitting Clinician Unavailable Payers Payer Name Policy Type Policy Number Effective Date Expirati on Date Source MEDICARE PART A \T\ [id number] 2015 00:00:00 Problems Condition Name Condition Details Condition Category Status Onset Date Resolution Date Last Treatment Date Treating Clinician Comments Source No known active problems No known active problems Disease [facility] Allergies, Adverse Reactions, Alerts Allergy Name Allergy Type Status Severity Reaction(s) Onset Date Inactive Date Treating Clinician Comments Source NO KNOWN ALLERGIE S Drug Class Active [facility] Social History Social Habit Start Date Stop Date Quantity Comments Source Exposure to SARS-CoV-2 (event) 2022-05-26 00:00:00 2022-06-05 15:04:00 Not sure [facility] Alcohol intake 2020-05-31 00:00:00 2020-05-31 00:00:00 Current non-drinker of alcohol (finding) [facility] Tobacco use and exposure 2018-07-17 00:00:00 2018-07-17 00:00:00 Smokeless tobacco non-user [facility] Sex Assigned At 1950 00:00:00 1950 00:00:00 [facility] Smoking Status Start Date Stop Date Source Never smoked tobacco [facility] Medications Ordered Medication Name Filled Medication Name Start Date Stop Date Current Medication? Ordering Clinician Indication Dosage Frequency Signature (SIG) Comments Components Source lisinopriL 20 mg tablet 2021-05 00:00: 00 Yes [id number] 20mg Take 1 tablet by mouth in the morning. [facility] lisinopriL (PRINIVIL,Z ESTRIL) tablet 10 mg 2021-05 02:04: 00 05-01 02:14 :00 No 10mg 10 mg, Oral, ONCE, 1 dose, On Fri04/30/22 at 2015, BRISA [facility] lisinopriL 40 mg tablet 2021-05 20:06: 43 04-30 00:00 :00 No 40mg Take 40 mg by mouth daily. [facility] lisinopriL 20 mg tablet 2021-05 00:00: 00 05-06 00:00 :00 No [id number] 20mg Take 1 tablet by mouth in the morning for 30 days. [facility] aspirin 81 mg chewable tablet 05-31 15:33: 48 Yes 81mg Take 81 mg by mouth daily. [facility] Dose Unknown 6- 00:00: 00 No Dose Unknown 11-11 00:00: 00 No lisinopril 40 mg tablet 6-18 00:00: 00 No 1mg lisinopril 40 mg tablet 3-18 00:00: 00 No 1mg lisinopril 40 mg tablet 24 00:00: 00 No 1mg Dose Unknown 224 00:00: 00 No omeprazole 20 mg capsule,del ayed release 224 00:00: 00 No 1mg lisinopril 20 mg tablet 06-14 00:00: 00 No 1mg methimazole 10 mg tablet 06-14 00:00: 00 No 1mg metoprolol tartrate 50 mg tablet 2018-05 1-13 00:00: 00 No 1mg methimazole 10 mg tablet 11-25 00:00: 00 No 1mg metoprolol tartrate 50 mg tablet 11-25 00:00: 00 No 1mg methimazole 10 mg tablet 11-17 00:00: 00 No 1mg metoprolol tartrate 50 mg tablet 11-17 00:00: 00 No 1mg methimazole 10 mg tablet 530 00:00: 00 No 1mg methimazole 10 mg tablet 30 00:00: 00 No 1mg metoprolol tartrate 50 mg tablet 3 00:00: 00 No 1mg methimazole 5 mg tablet 304 00:00: 00 No 1mg metoprolol tartrate 50 mg tablet 220 00:00: 00 No 1mg Vital Signs Vital Name Observation Time Observation Value Comments S ource Systolic blood pressure 2022-05-06 16:25:00 145 mm[Hg] [facility] Diastolic blood pressure 2022-05-06 16:25:00 85 mm[Hg] [facility] Heart rate 2022-05-06 16:25:00 91 /min [facility] Respiratory rate 2022-05-06 16:25:00 16 /min [facility] Oxygen saturation in Arterial blood by Pulse oximetry 2022-05-06 16:25:00 100 /min [facility] Body temperature 2022-05-06 16:23:00 36.72 Kristine [facility] Body height 2022-05-06 16:23:00 160 cm [facility] Body weight 2022-05-06 16:23:00 65.091 kg [facility] BMI 2022-05-06 16:23:00 25.42 kg/m2 [facility] Systolic blood pressure 2022-05-01 01:00:00 126 mm[Hg] [facility] Diastolic blood pressure 2022-05-01 01:00:00 86 mm[Hg] [facility] Heart rate 2022-05-01 01:00:00 75 /min [facility] Respiratory rate 2022-05-01 01:00:00 12 /min [facility] Oxygen saturation in Arterial blood by Pulse oximetry 2022-05-01 01:00:00 97 /min [facility] Body temperature 2022-04-30 22:27:00 36.5 Kristine [facility] Body height 2022-04-30 22:27:00 160 cm [facility] Body weight 2022-04-30 22:27:00 63.322 kg [facility] BMI 2022-04-30 22:27:00 24.73 kg/m2 [facility] BP Systolic 2022-04-30 14:42:00 188 mm[Hg] BP Diastolic 2022-04-30 14:42:00 106 mm[Hg] Weight Measured 2022-04-30 14:42:00 157.40 pounds Height Measured 2022-04-30 14:42:00 63.00 inches Body Temperature 2022-04-30 14:42:00 98.30 degrees Heart Rate 2022-04-30 14:42:00 97.00 /min Respiratory Rate 2022-04-30 14:42:00 BP Systolic 2019-11-08 18:01:00 126 mm[Hg] BP Diastolic 2019-11-08 18:01:00 80 mm[Hg] Weight Measured 2019-11-08 18:01:00 157.40 pounds Height Measured 2019-11-08 18:01:00 63.00 inches Body Temperature 2019-11-08 18:01:00 98.50 degrees Heart Rate 2019-11-08 18:01:00 91.00 /min Respiratory Rate 2019-11-08 18:01:00 16.00 /min BP Systolic 2019-07-12 13:43:00 139 mm[Hg] BP Diastolic 2019-07-12 13:43:00 87 mm[Hg] Weight Measured 2019-07-12 13:43:00 167.80 pounds Height Measured 2019-07-12 13:43:00 63.00 inches Body Temperature 2019-07-12 13:43:00 97.90 degrees Heart Rate 2019-07-12 13:43:00 92.00 /min Respiratory Rate 2019-07-12 13:43:00 17.00 /min BP Systolic 2019-06-14 17:31:00 150 mm[Hg] BP Diastolic 2019-06-14 17:31:00 85 mm[Hg] Weight Measured 2019-06-14 17:31:00 170.00 pounds Height Measured 2019-06-14 17:31:00 63.00 inches Body Temperature 2019-06-14 17:31:00 98.00 degrees Heart Rate 2019-06-14 17:31:00 86.00 /min Respiratory Rate 2019-06-14 17:31:00 17.00 /min Weight Measured 2019-02-24 11:02:00 166.00 pounds Height Measured 2019-02-24 11:02:00 63.00 inches Body Temperature 2019-02-24 11:02:00 97.90 degrees Heart Rate 2019-02-24 11:02:00 72.00 /min Respiratory Rate 2019-02-24 11:02:00 16.00 /min BP Systolic 2019-02-24 11:02:00 166 mm[Hg] BP Diastolic 2019-02-24 11:02:00 87 mm[Hg] BP Systolic 2018-11-25 15:50:00 133 mm[Hg] BP Diastolic 2018-11-25 15:50:00 90 mm[Hg] Weight Measured 2018-11-25 15:50:00 160.80 pounds Height Measured 2018-11-25 15:50:00 63.00 inches Body Temperature 2018-11-25 15:50:00 98.40 degrees Heart Rate 2018-11-25 15:50:00 88.00 /min Respiratory Rate 2018-11-25 15:50:00 16.00 /min BP Systolic 2018-08-11 15:50:00 127 mm[Hg] BP Diastolic 2018-08-11 15:50:00 82 mm[Hg] Weight Measured 2018-08-11 15:50:00 143.40 pounds Height Measured 2018-08-11 15:50:00 63.00 inches Body Temperature 2018-08-11 15:50:00 97.60 degrees Heart Rate 2018-08-11 15:50:00 81.00 /min Respiratory Rate 2018-08-11 15:50:00 16.00 /min BP Systolic 2018-07-16 13:49:00 149 mm[Hg] BP Diastolic 2018-07-16 13:49:00 83 mm[Hg] Weight Measured 2018-07-16 13:49:00 142.00 pounds Height Measured 2018-07-16 13:49:00 63.00 inches Body Temperature 2018-07-16 13:49:00 97.60 degrees Heart Rate 2018-07-16 13:49:00 96.00 /min Respiratory Rate 2018-07-16 13:49:00 16.00 /min BP Systolic 2018-07-08 14:14:00 178 mm[Hg] BP Diastolic 2018-07-08 14:14:00 95 mm[Hg] Weight Measured 2018-07-08 14:14:00 141.20 pounds Height Measured 2018-07-08 14:14:00 63.00 inches Body Temperature 2018-07-08 14:14:00 97.90 degrees Heart Rate 2018-07-08 14:14:00 123.00 /min Respiratory Rate 2018-07-08 14:14:00 16.00 /min Procedures Procedure Date / Time Performed Performing Clinicia n Source XR CHEST 2 VW 2022-04-30 23:47:34 [facility] TROPONIN I 2022-04-30 23:32:00 [facility] G [facility]ne [facility] COMP. METABOLIC PANEL (08317) 2022-04-30 23:32:00 Pavan [facility] CBC WITH DIFF 2022-04-30 23:32:00 [facility] URINALYSIS 2022-04-30 23:32:00 Maria G Browne [facility] N-TERMINAL PRO-BNP 2022-04-30 23:32:00 Pavan [facility] CONSENT/REFUSAL FOR DIAGNOSIS AND TREATMENT 2022-04-30 22:12:58 Doctor Unassigned, [place] [facility] Plan of Care Planned Activity Planned Date Details Comments Source Goal Plan of Care Note [code = 03203-4] Goal Plan of Care Note [code = 86377-1] Goal Plan of Care Note [code = 77893-1] Goal Plan of Care Note [code = 24958-9] Goal Plan of Care Note [code = 77442-9] Goal Plan of Care Note [code = 77190-7] Goal Plan of Care Note [code = 21736-1] Goal Plan of Care Note [code = 13523-9] Goal Plan of Care Note [code = 67405-6] Goal Plan of Care Note [code = 10997-8] Encounters Start Date/Time End Date/Time Encounter Type Admission Type Attending Clinicians [facility] Facility Care Department Encounter ID Source 2023-08-11 11:42:01 2023-08-11 11:42:01 Outpatient [facility] [id number] Aditya Cheng 2023-03-19 00:00:00 2023-03-19 00:00:00 Outpatient GC_GCBZW_Ka diyala_S [facility] [id number] [facility] 2022-06-12 13:00:00 2022-06-12 13:00:00 Outpatient MAURIZIO CHANCE [facility] [id number] [facility] 2022-06-07 00:00:00 2022-06-07 00:00:00 [facility] [id number] [facility] 2022-06-07 00:00:00 2022-06-07 00:00:00 [facility] [id number] [facility] 2022-06-06 00:00:00 2022-06-06 00:00:00 [facility] [id number] [id number] [facility] 2022-06-05 15:00:00 2022-06-05 23:59:00 [id number] 2022-05-22 15:00:00 2022-05-22 15:00:00 Outpatient R SOCORRO [facility] [id number] [facility] 2022-05-06 10:20:00 2022-05-06 10:40:00 Office Visit [place] [facility] [id number] [facility] 2022-05-06 10:20:00 2022-05-06 10:20:00 Outpatient R SOCORRO [facility] [id number] [facility] 2022-04-30 16:28:00 2022-04-30 20:30:00 Emergency X MARIA G BROWNE [facility] ERT [id number] [facility] 2022-04-30 16:28:00 2022-04-30 20:30:00 Emergency Maria G Browne [facility] [id number] [id number] [id number] [facility] 2022-04-30 14:26:21 2022-04-30 14:26:21 Outpatient [facility] [id number] Aditya Jada Prosper 2022-04-30 00:00:00 2022-04-30 00:00:00 Outpatient Visit [id number] 2020-05-31 15:00:00 2020-05-31 15:00:00 Outpatient R SILVINO QUINTANILLA [facility] [id number] [facility] 2020-05-15 00:00:00 2020-05-15 00:00:00 [facility] [id number] Results Test Description Test Time Test Comments Results Result Co mments Source FREE T4 (THYROXINE)2019-07-13 00:00:00* Test Item Value Reference Range Interpretation Comme nts FREE T4 (THYROXINE) (test co de = 2823) 0.40 NG/DL OCCULT BLD,FECAL,IMMUNOASSAY [id number] 00:00:00* Test Item Value Reference Range Interpretation Comme nts OCCULT BLD, FECAL (test code = 21304) NEGATIVE CBC W/AUTO [id number] 00:00:00* Test Item Value Reference Range Interpretation Comme nts WBC (test code = 1001) 8.6 K/UL RBC (test code = 1002) 4.66 M/UL HEMOGLOBIN (test code = 1003) 14.1 G/DL HEMATOCRIT (test code = 1004) 41.3 % MCV (test code = 1005) 88.6 fL MCH (test code = 1006) 30.3 PG MCHC (test code = 1007) 34.1 G/DL RDW (test code = 1038) 12.6 % NEUTROPHILS (test code = 1008) 62.3 % LYMPHOCYTES (test code = 1010) 24.2 % MONOCYTES (test code = 1011) 9.9 % EOSINOPHILS (test code = 1012) 2.8 % BASOPHILS (test code = 1013) 0.8 % PLATELET COUNT (test code = 1015) 250 K/UL FREE [id number] 00:00:00* Test Item Value Reference Range Interpretation Comme nts FREE T3 (test code = 4273) 3.0 PG/ML FREE T4 (THYROXINE)2019-02-25 00:00:00* Test Item Value Reference Range Interpretation Comme nts FREE T4 (THYROXINE) (test co de = 2823) 0.73 NG/DL [id number] 00:00:00* Test Item Value Reference Range Interpretation Comme nts TSH, THIRD GENERATION (test code = 2821) 0.313 UIU/ML COMPREHENSIVE METABOLIC [id number] 00:00:00* Test Item Value Reference Range Interpretation Comme nts GLUCOSE (test code = 2217) 92 MG/DL BUN (test code = 2208) 8 MG/DL CREATININE (test code = 2214) 0.65 MG/DL eGFR AMER. (test cod e = 65908) 106 ML/MIN/1.73 eGFR NON- AMER. (test code = 55890) 91 ML/MIN/1.73 CALC BUN/CREAT (test code = 2235) 12 RATIO SODIUM (test code = 2231) 144 MEQ/L POTASSIUM (test code = 2228) 4.1 MEQ/L CHLORIDE (test code = 2215) 103 MEQ/L CARBON DIOXIDE (test code = 2206) 26 MEQ/L CALCIUM (test code = 2209) 10.1 MG/DL PROTEIN, TOTAL (test code = 2229) 7.2 G/DL ALBUMIN (test code = 2201) 4.6 G/DL CALC GLOBULIN (test code = 2240) 2.6 G/DL CALC A/G RATIO (test code = 2234) 1.8 RATIO BILIRUBIN, TOTAL (test code = 2207) 1.0 MG/DL ALKALINE PHOSPHATASE (test code = 2204) 110 U/L AST (test code = 2218) 36 U/L ALT (test code = 2219) 37 U/L LIPID [id number] 00:00:00* Test Item Value Reference Range Interpretation Comme nts CHOLESTEROL (test code = 2210) 193 MG/DL TRIGLYCERIDES (test code = 2232) 227 MG/DL HDL CHOLESTEROL (test code = 2220) 32 MG/DL CALC LDL CHOL (test code = 2237) 116 MG/DL RISK RATIO LDL/HDL (test cod e = 2238) 3.61 RATIO [id number] 00:00:00* Test Item Value Reference Range Interpretation Comme nts TSH, THIRD GENERATION (test code = 2821) 0.074 UIU/ML THYROID II PROFILE (T3U, T4, T7, TSH)2018-08-13 00:00:00* Test Item Value Reference Range Interpretation Comme nts T-UPTAKE (test code = 2817) 36.1 % THYROX. BIND. CAPAC. (test c ode = 82015) 0.9 T4 (THYROXINE) (test code = 2819) 9.2 UG/DL CORRECTED T4 (FTI) (test cod e = 2820) 10.2 UG/DL TSH, THIRD GENERATION (test code = 2821) <0.010 UIU/ML [id number] 00:00:00* Test Item Value Reference Range Interpretation Comme nts CALCIUM (test code = 2209) 10.8 MG/DL THYROID II PROFILE (T3U, T4, T7, TSH)2018-07-17 00:00:00* Test Item Value Reference Range Interpretation Comme nts T-UPTAKE (test code = 2817) 44.9 % THYROX. BIND. CAPAC. (test c ode = 54440) 0.6 T4 (THYROXINE) (test code = 2819) 13.6 UG/DL CORRECTED T4 (FTI) (test cod e = 2820) 22.7 UG/DL TSH, THIRD GENERATION (test code = 2821) <0.010 UIU/ML THYROGLOBULIN, QUANTITATIVE AND [id number] 00:00:00* Test Item Value Reference Range Interpretation Comme nts THYROGLOBULIN (test code = 71591) 3.2 NG/ML THYROGLOBULIN AB (test code = 247468) 86 IU/ML THYROID PEROXIDASE [id number] 00:00:00* Test Item Value Reference Range Interpretation Comme nts THYROID PEROXIDASE AB (test code = 71658) >900 IU/ML COMPREHENSIVE METABOLIC [id number] 00:00:00* Test Item Value Reference Range Interpretation Comme nts GLUCOSE (test code = 2217) 106 MG/DL BUN (test code = 2208) 9 MG/DL CREATININE (test code = 2214) 0.42 MG/DL eGFR AMER. (test cod e = 35565) 122 ML/MIN/1.73 eGFR NON- AMER. (test code = 00109) 105 ML/MIN/1.73 CALC BUN/CREAT (test code = 2235) 21 RATIO SODIUM (test code = 2231) 146 MEQ/L POTASSIUM (test code = 2228) 4.2 MEQ/L CHLORIDE (test code = 2215) 106 MEQ/L CARBON DIOXIDE (test code = 2206) 25 MEQ/L CALCIUM (test code = 2209) 10.7 MG/DL PROTEIN, TOTAL (test code = 2229) 7.3 G/DL ALBUMIN (test code = 2201) 4.6 G/DL CALC GLOBULIN (test code = 2240) 2.7 G/DL CALC A/G RATIO (test code = 2234) 1.7 RATIO BILIRUBIN, TOTAL (test code = 2207) 1.2 MG/DL ALKALINE PHOSPHATASE (test code = 2204) 131 U/L AST (test code = 2218) 24 U/L ALT (test code = 2219) 28 U/L LIPID [id number] 00:00:00* Test Item Value Reference Range Interpretation Comme nts CHOLESTEROL (test code = 2210) 149 MG/DL TRIGLYCERIDES (test code = 2232) 133 MG/DL HDL CHOLESTEROL (test code = 2220) 39 MG/DL CALC LDL CHOL (test code = 2237) 83 MG/DL RISK RATIO LDL/HDL (test cod e = 2238) 2.14 RATIO CBC W/AUTO [id number] 00:00:00* Test Item Value Reference Range Interpretation Comme nts WBC (test code = 1001) 7.1 K/UL RBC (test code = 1002) 5.11 M/UL HEMOGLOBIN (test code = 1003) 13.9 G/DL HEMATOCRIT (test code = 1004) 41.7 % MCV (test code = 1005) 81.6 fL MCH (test code = 1006) 27.2 PG MCHC (test code = 1007) 33.3 G/DL RDW (test code = 1038) 12.4 % NEUTROPHILS (test code = 1008) 60.0 % LYMPHOCYTES (test code = 1010) 27.8 % MONOCYTES (test code = 1011) 10.1 % EOSINOPHILS (test code = 1012) 1.7 % BASOPHILS (test code = 1013) 0.4 % PLATELET COUNT (test code = 1015) 267 K/UL [id number] 00:00:00* Test Item Value Reference Range Interpretation Comme nts TSH, THIRD GENERATION (test code = 2821) <0.010 UIU/ML
[2024-08-25] MEDS ORDERED: NA CHLORIDE 0.9% 1,000 ML ONE (10:25)
[2024-08-25] MEDS ORDERED: FUROSEMIDE 100 MG/10 ML VIAL IV ONE (10:27)
[2024-08-25 10:32] LABS: Absolute Basophils 0.2 K/uL (0-0.5); Absolute Eosinophils 0.3 K/uL (0-0.5); Absolute Lymphocytes (CBC) 6.2 K/uL (0.7-4.9); Absolute Monocytes 0.6 K/uL (0.1-1.3); Absolute Neutrophil 8.6 K/uL (1.8-8.0); Eosinophils % 2.1 % (0-4.4); Hematocrit 41.9 % (36.0-45.0); MCH 30.3 pg (27.0-35.0); MCHC 33.4 g/dL (32.0-36.0); MCV 90.8 fL (80-100); MPV 9.5 fL (7.6-11.3); Monocytes % 3.7 % (3.3-12.3); Neutrophils % 54.2 % (41.7-73.7); Nucleated Red Blood Cells % 0.1 % (0-0); Platelets 384 thou/uL (152-406); RBC Red Blood Cell Count 4.62 M/uL (3.86-4.86)
[2024-08-25] MEDS ORDERED: NITROGLYCERIN 1 GM PKT TD ONE (10:32)
[2024-08-25 10:53] LABS: PT Prothrombin Time 11.4 SECONDS (10-13.0); PTT, Activated Partial Thromb 27.7 SECONDS (27.2-37.4)
[2024-08-25] MEDS ORDERED: NITROGLYCERIN/D5W 0 MG/0 ML BTL IV ONE (11:04)
--- NOTE | 2024-08-25 11:20 | RAD REPORT ---
EXAMINATION: ONE VIEW CHEST XR CLINICAL INDICATION: DYSPNEA TECHNIQUE: Frontal chest projection is submitted. Examination is limited by patient positioning and t echnique. COMPARISON: No prior exam. FINDINGS: There is extensive bilateral pulmonary opacities, greater on the right which may represent pneumonia or pulmonary edema. The heart is upper limit of normal in size. No displaced fractures identified. Prominent dextroscoliosis of the thoracic spine.
[2024-08-25 11:26] LABS: Albumin 3.7 g/dL (3.4-5.0); Anion Gap 14.3 mEq/L (5.0-15.0); Globulin 3.8 g/dL (2.3-3.5); Potassium 3.3 mEq/L (3.5-5.1); Protein, Total 7.5 g/dL (6.4-8.2); Thyroid Stimulating Hormone 10.2 uIU/mL (0.358-3.740); Troponin High Sensitivity 21.5 pg/mL (<58.9)
[2024-08-25 11:52] LABS: Arterial Blood Carboxyhemoglob 0.4 % (0-1.5); Blood Gas THB 14.4 g/dl (12-18)
--- NOTE | 2024-08-25 12:17 | EDPHYS ---
Physician Documentation [facility] Name: Cecily Santo Age: 74 yrs Sex: Female : 1950 Arrival Date: 08/25/2024 Time: 10:06 Bed 4 Private MD: ED Physician Allyson Cervantes HPI: 08/25 12:28 This 74 yrs old Female presents to ER via EMS with complaints of Breathing gb1 Difficulty. 12:28 74-year-old Ms. Cecily Santo was brought to the ER by her for difficulty gb1 breathing and working hard to breathe. 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 Historical: - Allergies: 10:12 No Known Allergies; ll1 - PMHx: 10:12 Hypertensive disorder; ll1 - Immunization history:: Adult Immunizations up to date. - Infectious Disease History:: Denies. - Social history:: Smoking status: Patient denies any tobacco usage or history of. Exam: 12:28 Constitutional: This is a well developed, well nourished patient who is awake, alert, gb1 and in no acute distress. Head/Face: Normocephalic, atraumatic. Eyes: Pupils equal round and reactive to light, extra-ocular motions intact. Lids and lashes normal. Conjunctiva and sclera are non-icteric and not injected. Cornea within normal limits. Periorbital areas with no swelling, redness, or edema. ENT: Nares patent. No nasal discharge, no septal abnormalities noted. Tympanic membranes are normal and external auditory canals are clear. Oropharynx with no redness, swelling, or masses, exudates, or evidence of obstruction, uvula midline. Mucous membranes moist. Neck: Trachea midline, no thyromegaly or masses palpated, and no cervical lymphadenopathy. Supple, full range of motion without nuchal rigidity, or vertebral point tenderness. No Meningismus. Chest/axilla: Normal chest wall appearance and motion. Nontender with no deformity. No lesions are appreciated. Cardiovascular: Regular rate and rhythm with a normal S1 and S2. No gallops, murmurs, or rubs. Normal PMI, no JVD. No pulse deficits. Respiratory: Lungs have equal breath sounds bilaterally, clear to auscultation and percussion. Bilateral rales, . Severe increased work of breathing, with retractions. Tachypnea Back: No spinal tenderness. No costovertebral tenderness. Full range of motion. Skin: Warm, diaphoretic pale color with no rashes, no lesions, and no evidence of cellulitis. MS/ Extremity: Pulses equal, no cyanosis. Neurovascular intact. Full, normal range of motion. Vital Signs: 10:13 BP 177 / 131; Pulse 140; Resp 32; Temp 97.2; Pulse Ox 92% on 4 lpm NC; ll1 10:56 BP 183 / 126; Pulse 126; Resp 28; Pulse Ox 100% on BiPAP; ll1 11:02 Weight 58.97 kg (M); jl7 11:06 BP 120 / 89; Pulse 114; Resp 22; Pulse Ox 97% on BiPAP; db 11:15 BP 122 / 85; Pulse 111; Resp 24; Pulse Ox 95% on BiPAP; db 11:26 BP 128 / 89; Pulse 111; Resp 23; Pulse Ox 96% on BiPAP; db 11:35 BP 98 / 73; Pulse 106; Resp 21; Pulse Ox 98% ; db 11:50 BP 94 / 71; Pulse 96; Resp 18; Pulse Ox 97% on BiPAP; db 12:00 BP 92 / 63; Pulse 94; Resp 18; Pulse Ox 98% on BiPAP; db 12:30 BP 94 / 72; Pulse 89; Resp 20; Pulse Ox 99% on BiPAP; db 12:45 BP 92 / 68; Pulse 87; Resp 20; Pulse Ox 98% on BiPAP; db 13:00 BP 105 / 80; Pulse 95; Resp 24; Pulse Ox 94% on 4 lpm NC; db 11:[address] CERVANTES OF BP. NO NEW ORDERS AT THIS TIME db MDM: 10:46 Medical Screening Exam initiated gb1 12:28 Data reviewed: vital signs, nurses notes, lab test result(s), EKG, radiologic studies, gb1 plain films. ED course: 74-year-old female with an acute exacerbation of congestive heart failure decompensated with acute pulmonary edema. Patient does have increased respiratory drive requiring BiPAP and Nitropaste. She is also requiring IV Lasix as well she is having an acute respiratory distress with failure. Her blood gases demonstrated 7.2 and she is improving clinically with the BiPAP I have admitted her to the medical ICU for further evaluation and I do recommend that cardiology evaluate as this is a new diagnosis of CHF. Patient will be evaluated by Dr. Abby Adame. 08/25 10:14 Order name: Blood Culture Adult (2) [facility] 08/25 10:14 Order name: CBC with Diff; Complete Time: 10:46 [facility] 08/25 10:14 Order name: Lactate w/ 2H reflex if indic.; Complete Time: 12:08 [facility] 08/25 10:14 Order name: Protime (+inr); Complete Time: 11:01 [facility] 08/25 10:14 Order name: Ptt, Activated; Complete Time: 11:01 [facility] 08/25 10:22 Order name: BNP; Complete Time: 12:08 [facility] 08/25 10:22 Order name: Troponin HS; Complete Time: 12:08 [facility] 08/25 10:22 Order name: TSH; Complete Time: 12:08 [facility] 08/25 10:40 Order name: Comprehensive Metabolic Panel; Complete Time: 12:08 [facility] 08/25 11:18 Order name: Ghost Lactate-NO COLLECT Timer; Complete Time: 17:29 [facility] 08/25 11:28 Order name: T4 Free; Complete Time: 12:08 [facility] 08/25 11:37 Order name: ABG; Complete Time: 12:08 [facility] 08/25 13:11 Order name: Lipid Profile [facility] 08/25 13:11 Order name: Lipid Profile [facility] 08/25 14:45 Order name: Lactate Sepsis 2 HR Follow-up; Complete Time: 17:29 [facility] 08/25 10:22 Order name: Chest Single View XRAY; Complete Time: 12:08 [facility] 08/25 11:29 Order name: ARTERIAL BLOOD GAS [facility] 08/25 11:29 Order name: BiPap ([employer] Only) [facility] 08/25 13:00 Order name: Echo with Doppler [facility] 08/25 13:11 Order name: CT-CHEST WITHOUT CONTRAST [facility] 08/25 10:14 Order name: Cardiac monitoring; Complete Time: 10:15 [facility] 08/25 10:14 Order name: EKG - Nurse/Tech; Complete Time: 10:15 [facility] 08/25 10:14 Order name: IV Saline Lock - Large Bore; Complete Time: 10:15 [facility] 08/25 10:14 Order name: Labs collected and sent; Complete Time: 10:15 1 08/25 10:14 Order name: O2 Per Protocol; Complete Time: 10:15 1 08/25 10:14 Order name: O2 Sat Monitoring; Complete Time: 10:15 1 08/25 10:14 Order name: Vital Signs; Complete Time: 10:16 ll1 Administered Medications: 10:36 Drug: Furosemide IVP 80 mg IVP once; give over 2 minutes Route: IVP; Site: left ll1 antecubital; 11:42 Follow up: Response: No adverse reaction db 11:42 Not Given (Physician Discretion; PE): [id number] mcg/kg/min IV at calculated rate db See Administration Instructions; Shield from light (standard concentration 50 mg/250 mL D5W); Recommended max rate 10 mcg/kg/min; Titrate 0.1 mcg/kg/min as often as every 5 minutes to achieve goal (see titration policy); Goal parameter SBP less than 160 mmHg. Disposition: 12:28 Critical Care:. gb1 Disposition Summary: 08/25/24 12:16 Hospitalization Ordered Notes: Hospitalization Status: Inpatient Admission gb1 Provider: Wendi Mora Condition: Critical gb1 Problem: new gb1 Symptoms: have worsened gb1 Bed/Room Type: Standard [facility] Location: Telemetry/MedSurg (Inpatient)(08/25/24 14:19) Room Assignment: [facility](08/25/24 14:19) Diagnosis - Acute systolic (congestive) heart failure gb1 - Acute pulmonary edema gb1 - Acute respiratory failure gb1 Forms: - Medication Reconciliation Form gb1 - SBAR form gb1 - Leadership Thank You Letter gb1 Critical care time excluding procedures: 12:28 Critical care time: Bedside Care: 45 minutes, Consultation: 60 minutes, Family gb1 Intervention: 45 minutes. Total time: 150 minutes Signatures: Dispatcher [employer] EDRosangela Schwarz Lynsay, RN RN 1 Jackie Shah RN RN db Allyson Cervantes MD MD gb1 Corrections: (The following items were deleted from the chart) 10:22 10:22 PROBNP+C.LAB.BRZ ordered. EDMS EDMS 10:22 10:22 Troponin High Sensitivity+C.LAB.BRZ ordered. EDMS EDMS 10:22 10:22 THYROID STIMULAT HORMONE+C.LAB.BRZ ordered. EDMS EDMS 10:39 10:15 COMPREHENSIVE METABOLIC PANEL+C.LAB.BRZ ordered. EDMS EDMS 14: 12:16 Intensive Care Unit 1 bd : 12:16 1 bd
--- NOTE | 2024-08-25 12:17 | ER ---
Nurse's Notes [facility] Name: Cecily Santo Age: 74 yrs Sex: Female : 1950 Arrival Date: 08/25/2024 Time: 10:06 Bed 4 Private MD: Diagnosis: Acute systolic (congestive) heart failure;Acute pulmonary edema;Acute respiratory failure Presentation: 08/25 10:13 Chief complaint: Patient states: SOB and high BP. Hasn't been taking everyday meds at ll1 all. Coronavirus screen: Client denies travel out of the [place] in the last 14 days. At this time, the client does not indicate any symptoms associated with coronavirus-19. Ebola Screen: Patient denies travel to an Ebola-affected area in the 21 days before illness onset. Initial Sepsis Screen: Does the patient meet any 2 criteria? No. Patient's initial sepsis screen is negative. Does the patient have a suspected source of infection? No. Patient's initial sepsis screen is negative. Risk Assessment: Do you want to hurt yourself or someone else? Patient reports no desire to harm self or others. Onset of symptoms was August 21, 2024. 10:13 Method Of Arrival: EMS ll1 10:13 Acuity: WILBERT 2 ll1 10:16 Chief complaint: EMS states: BP 140/80, then shot up to 202/118. SOB, panicked. Cannot ll1 tolerate mask. 20 R AC started. Solu-Medrol 125 mg IV and A\\T\\A treatment en route. Triage Assessment: 10:13 General: Appears distressed, uncomfortable, ill, Behavior is appropriate for age, ll1 anxious, listless. Pain: Denies pain. Neuro: Reports dizziness, a syncopal episode weakness. Cardiovascular: Reports diaphoresis, fatigue, lightheadedness, shortness of breath. Respiratory: Reports shortness of breath at rest labored breathing. Historical: - Allergies: 10:12 No Known Allergies; ll1 - PMHx: 10:12 Hypertensive disorder; ll1 - Immunization history:: Adult Immunizations up to date. - Infectious Disease History:: Denies. - Social history:: Smoking status: Patient denies any tobacco usage or history of. Screenin:33 [facility] ED Fall Risk Assessment (Adult) History of falling in the last 3 months, db including since admission No falls in past 3 months (0 pts) Confusion or Disorientation No (0 pts) Intoxicated or Sedated No (0 pts) Impaired Gait No (0 pts) Mobility Assist Device Used No (0 pt) Altered Elimination No (0 pt) Score/Fall Risk Level 0 - 2 = Low Risk Oriented to surroundings, Maintained a safe environment. Abuse screen: Denies threats or abuse. Denies injuries from another. Nutritional screening: No deficits noted. Tuberculosis screening: No symptoms or risk factors identified. Assessment: 11:31 Reassessment: Patient and/or family updated on plan of care and expected duration. Pain db level reassessed. Patient is alert, oriented x 3, equal unlabored respirations, skin warm/dry/pink. PATIENT CHANGED INTO GOWN. PURWICK IN PLACE. NITRO HELD PER PROVIDER. PT STATES FEELS BETTER. General: Appears in no apparent distress. comfortable, Behavior is calm, cooperative. 13:00 Reassessment: Patient appears in no apparent distress at this time. Patient and/or db family updated on plan of care and expected duration. Pain level reassessed. Patient is alert, oriented x 3, equal unlabored respirations, skin warm/dry/pink. PATIENT BIPAP REMOVED. RT AT BEDSIDE. Neuro: Level of Consciousness is awake, alert, obeys commands, Oriented to person, place. 13:10 Respiratory: Airway is patent Respiratory effort is even, unlabored, Respiratory db pattern is regular, symmetrical. 14:40 Reassessment: Patient appears in no apparent distress at this time. Patient and/or db family updated on plan of care and expected duration. Pain level reassessed. Patient is alert, oriented x 3, equal unlabored respirations, skin warm/dry/pink. Neuro: Reports headache STATES FEELS SENSATION OF A "BB HITTING IN BACK OF MY HEAD". 15:46 Reassessment: PATIENT CLEANED AND BRIEF CHANGED. db Vital Signs: 10:13 BP 177 / 131; Pulse 140; Resp 32; Temp 97.2; Pulse Ox 92% on 4 lpm NC; ll1 10:56 BP 183 / 126; Pulse 126; Resp 28; Pulse Ox 100% on BiPAP; ll1 11:02 Weight 58.97 kg (M); jl7 11:06 BP 120 / 89; Pulse 114; Resp 22; Pulse Ox 97% on BiPAP; db 11:15 BP 122 / 85; Pulse 111; Resp 24; Pulse Ox 95% on BiPAP; db 11:26 BP 128 / 89; Pulse 111; Resp 23; Pulse Ox 96% on BiPAP; db 11:35 BP 98 / 73; Pulse 106; Resp 21; Pulse Ox 98% ; db 11:50 BP 94 / 71; Pulse 96; Resp 18; Pulse Ox 97% on BiPAP; db 12:00 BP 92 / 63; Pulse 94; Resp 18; Pulse Ox 98% on BiPAP; db 12:30 BP 94 / 72; Pulse 89; Resp 20; Pulse Ox 99% on BiPAP; db 12:45 BP 92 / 68; Pulse 87; Resp 20; Pulse Ox 98% on BiPAP; db 13:00 BP 105 / 80; Pulse 95; Resp 24; Pulse Ox 94% on 4 lpm NC; db 11:[address] CERVANTES OF BP. NO NEW ORDERS AT THIS TIME db Vitals: 11:06 Cardiac Rhythm Assessment Sinus rhythm. db ED Course: 10:09 Patient arrived in ED. ll1 10:12 Allyson Cervantes MD is Attending Physician. gb1 10:12 Arm band placed on Patient placed in an exam room, on a stretcher. ll1 10:14 Triage completed. ll1 10:14 Brenda Mast RN is Primary Nurse. ll1 10:16 Initial lab(s) drawn, by ri, sent to lab. Inserted saline lock: 20 gauge in left ll1 antecubital area, using aseptic technique. Blood collected. Flushed with 10 mL NS. 10:30 Second set of blood cultures drawn. Inserted saline lock: 22 gauge in right forearm, ll1 using aseptic technique. Blood collected. Flushed with 10 mL NS. 10:55 Chest Single View XRAY In Process Unspecified. EDMS 10:56 X-ray completed. Portable x-ray completed in exam room. Patient tolerated procedure mh1 well. 11:33 Patient has correct armband on for positive identification. Bed in low position. Call db light in reach. Side rails up X2. Client placed on continuous cardiac and pulse oximetry monitoring. NIBP monitoring applied. tavern operator on. Pulse ox on. NIBP on. Lights dimmed. Warm blanket given. Pillow given. 12:15 Wendi Mora MD is Hospitalizing Provider. gb1 14:46 Primary Nurse role handed off by Brenda Mast, RN jl7 14:46 Jackie Shah, RN is Primary Nurse. jl7 15:59 Provided Education on: ADMISSION. db 15:59 No provider procedures requiring assistance completed. Patient admitted, IV remains in db place. Administered Medications: 10:36 Drug: Furosemide IVP 80 mg IVP once; give over 2 minutes Route: IVP; Site: left ll1 antecubital; 11:42 Follow up: Response: No adverse reaction db 11:42 Not Given (Physician Discretion; PE): [id number] mcg/kg/min IV at calculated rate db See Administration Instructions; Shield from light (standard concentration 50 mg/250 mL D5W); Recommended max rate 10 mcg/kg/min; Titrate 0.1 mcg/kg/min as often as every 5 minutes to achieve goal (see titration policy); Goal parameter SBP less than 160 mmHg. Medication: 15:59 VIS not applicable for this client. db Outcome: 12:16 Decision to Hospitalize by Provider. gb1 15:59 Admitted to Med/surg accompanied by tech, room 410, db 15:59 Condition: stable 15:59 Instructed on the need for admit, 16:00 Patient left the ED. db Signatures: Dispatcher [employer] EDMS Delores Austin 1 Rolando Vera RN RN jl7 Brenda Mast, RN RN [facility] Jackie Shah, RN RN db Allyson Cervantes MD MD gb1 Corrections: (The following items were deleted from the chart) 13:11 13:00 Neuro: Level of Consciousness is awake, alert, db db 13:13 11:50 BP 94 / 71; Pulse 96bpm; Resp 18bpm; Pulse Ox 97% BiPAP; db db
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
[2024-08-25] MEDS ORDERED: ALBUTEROL 2.5 MG/3 ML NEB SOL NEB PRN (13:07)
[2024-08-25 15:58] VITALS: BMI 22.3
[2024-08-25] MEDS: POTASSIUM CL 40 MEQ in NA CHLORIDE 0.9% 500 ML IV SCH (16:01)
[2024-08-25] MEDS: FUROSEMIDE 40 MG/4 ML VIAL IV SCH (16:48)
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
--- NOTE | 2024-08-25 17:40 | RAD REPORT ---
EXAMINATION: CT Thorax Wo Con CLINICAL INDICATION: Female, 74 years old. respiratory failure Y TECHNIQUE: Axial CT scan of the chest without intravenous contrast. Multiplanar reformats were genera natalia and reviewed. One or more of the following dose reduction techniques were used: Automated exposure control, adjustment of the mA and/or kV according patient size, and/or iterative reconstruct ion. Unless otherwise specified, incidental findings do not require dedicated imaging follow-up. COMPARISON: No prior exam. FINDINGS: LOWER NECK: Visualized thyroid gland and soft tissues are normal. LUNGS: Central groundglass opacities with interstitial thickening with right basal dependant patchy a lveolar opacities. No evidence of airspace or interstitial process. No worrisome nodules. PLEURA: Bilateral mild to moderate pleural effusion. No pneumothorax. . MEDIASTINUM AND LYMPH NODES: No mediastinal mass or fluid collection. Normal size mediastinal, hilar, and axillary lymph nodes with few calcified mediastinal and hilar lymph nodes as well as small parenchymal lung granulomas, suggesting sequelae of remote granulomatous infection. OSSEOUS STRUCTURES AND CHEST WALL: Dextroconvex scoliotic deformity of the mid thoracic spine. UPPER ABDOMEN: No significant abnormalities. IMPRESSION: Changes suggestive of pulmonary edema with bilateral effusions, as above.
[2024-08-25] MEDS: TRAMADOL HCL 50 MG TAB PO PRN (23:14)
[2024-08-26] MEDS: NS 0.9% VIAL 0 ML ONE (06:49)
[2024-08-26] MEDS: LEVOTHYROXINE SODIUM 100 MCG VIAL IV SCH (06:58)
[2024-08-26 08:06] LABS: Absolute Lymphocytes (CBC) 1.4 K/uL (0.7-4.9); Absolute Monocytes 0.9 K/uL (0.1-1.3); Absolute Neutrophil 18.1 K/uL (1.8-8.0); Basophils % 0.1 % (0-1.3); Hematocrit 37.3 % (36.0-45.0); Hemoglobin 12.4 g/dL (12.0-15.0); Lymphocytes % 6.9 % (15.3-44.8); MCH 29.6 pg (27.0-35.0); MCHC 33.3 g/dL (32.0-36.0); MCV 88.9 fL (80-100); MPV 9.8 fL (7.6-11.3); Monocytes % 4.3 % (3.3-12.3); Neutrophils % 88.7 % (41.7-73.7); Nucleated Red Blood Cells % 0.1 % (0-0); Platelets 284 thou/uL (152-406); RBC Red Blood Cell Count 4.19 M/uL (3.86-4.86); Red Cell Distribution Width 13.7 % (12.1-15.2)
[2024-08-26 08:25] LABS: Anion Gap 15.7 mEq/L (5.0-15.0); Potassium 4.7 mEq/L (3.5-5.1)
[2024-08-26] MEDS: PNEUMOCOCCAL VACCINE 0.5 ML IMVAC ONE (09:00)
[2024-08-26] MEDS: ENOXAPARIN 40 MG/0.4 ML SQ SCH (09:36)
[2024-08-26 10:40] LABS: Blood Morphology Comment NOT SEEN (NOT SEEN); Differential Total Cells Count 100; Lymphocytes 3 % (15-42); Monocytes 5 % (0-10); Platelet Estimate ADEQ; Segmented Neutrophils 92 % (40-80)
--- NOTE | 2024-08-26 10:48 | P.PN ---
Subjective Date of Service: 08/26/24 Chief Complaint: sob Subjective: No new changes No acute events, stated that she is feeling better with respect to shortness of breath Review of Systems General: Unremarkable Eyes: Unremarkable ENT: Unremarkable Respiratory: Cough, Shortness of Breath Cardiovascular: Unremarkable Gastrointestinal: Unremarkable Integumentary: Unremarkable Neurological: Unremarkable Physical Examination - Vital Signs Temperature: 98.7 F Blood Pressure: 97/60 Pulse: 95 Respirations: 16 Pulse Ox (%): 97 - Physical Exam General: Alert, Oriented x3 HEENT: Normocephalic Respiratory: Diminished Cardiovascular: Regular rate/rhythm Gastrointestinal: Normal bowel sounds, Soft and benign Neurological: Normal speech, Normal strength at 5/5 x4 extr - Studies Laboratory Data (last 24 hrs) 08/25/24 08/25/24 10:15 10:15 PT 11.4 INR 1.00 APTT 27.7 Sodium 139 Potassium 3.3 L BUN 18 Creatinine 1.08 H Glucose 276 H Total Bilirubin 1.0 AST 20 ALT 27 Alkaline Phosphatase 73 Assessment And Plan - Plan 1. Acute hypoxic respiratory failure secondary to likely acute diastolic CHF exacerbation -CT of chest positive for CHF -On IV Lasix twice daily -2D echo ordered - Cardiology consulted 2. Marked leukocytosis -WBC of 20,000 -Concern for underlying pneumonia - On Rocephin and azithromycin 3. Elevated lactic acid --Trending down 4. Hypothyroidism --On levothyroxine at home dose 5. Hypokalemia -- Replace and recheck 6. DVT prophylaxis - Subcu Lovenox
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
--- NOTE | 2024-08-26 11:50 | EKG ---
Test Date: 2024-08-25 Test Time: 10:10:05 Performance Makeup Artist: MICHAEL MEASUREMENT RESULTS: Intervals: Rate: 135 MD: 150 QRSD: 88 QT: 272 QTc: 408 [place]: P: 47 MD: 150 QRS: -73 T: 65 INTERPRETIVE STATEMENTS: Sinus tachycardia Left axis deviation Anteroseptal infarct, age undetermined Abnormal ECG Compared to ECG 09/09/2001 01:21:00 Sinus rhythm no longer present Myocardial infarct finding still present Electronically Signed On 08-26-24 11:48:40 CDT by Hilario Bazzi
--- NOTE | 2024-08-26 12:00 | ECHO ---
HEIGHT: 5 ft 4 in WEIGHT: 130 lb 0.106 oz DATE OF STUDY: 08/26/[address]: Wendi Mora MD 2-DIMENSIONAL: YES M.MODE: YES DOPPLER: YES COLOR FLOW: YES TDS: PORTABLE: YES DEFINITY: BUBBLE STUDY: DIAGNOSIS: CONGESTIVE HEART FAILURE CARDIAC HISTORY: CATHERIZATION: NO SURGERY: NO PROSTHETIC VALVE: NO PACEMAKER: NO MEASUREMENTS (cm) DIASTOLIC (NORMALS) SYSTOLIC (NORMALS) IVSd 0.9 (0.6-1.2) LA Diam 2.7 (1.9-4.0) LVEF 35-40% LVIDd 4.9 (3.5-5.7) LVIDs 4.0 (2.0-3.5) %FS 19% LVPWd 1.1 (0.6-1.2) Ao Diam 2.5 (2.0-3.7) 2 DIMENSIONAL ASSESSMENT: RIGHT ATRIUM: NORMAL LEFT ATRIUM: NORMAL RIGHT VENTRICLE: NORMAL LEFT VENTRICLE: NORMAL TRICUSPID VALVE: MILD TRICUSPID REGURGITATION MITRAL VALVE: MILD MITRAL REGURGITATION PULMONIC VALVE: NORMAL AORTIC VALVE: TRACE AORTIC REGURGITATION PERICARDIAL EFFUSION: NONE AORTIC ROOT: NORMAL LEFT VENTRICULAR WALL MOTION: MODERATE GLOBAL HYPOKINESIS DOPPLER/COLOR FLOW: DIASTOLIC DYSFUNCTION COMMENTS: 1. MODERATELY REDUCED LEFT VENTRICULAR SYSTOLIC FUNCTION, EJECTION FRACTION 35-40%, MODERATE GLOBAL HYPOKINESIS 2. DIASTOLIC DYSFUNCTION 3. NORMAL FILLING PRESSURE (RIGHT ATRIAL PRESSURE 0-5 mmHg) TECHNOLOGIST: VALERI ALDANA
--- NOTE | 2024-08-26 12:48 | P.PN ---
Subjective Date of Service: 08/26/24 Chief Complaint: Congestive heart failure hypothyroidism Patient is improving doing much better shortness of breath has improved Review of Systems General: Weakness Respiratory: Shortness of Breath Physical Examination - Vital Signs Temperature: 97.6 F Blood Pressure: 97/59 Pulse: 95 Respirations: 16 Pulse Ox (%): 97 - Physical Exam General: Alert, In no apparent distress, Oriented x3 Respiratory: Clear to auscultation bilaterally, Diminished Cardiovascular: No edema, Regular rate/rhythm Assessment And Plan - Current Problems (Diagnosis) (1) CHF (congestive heart failure) Current Visit: Yes Status: Acute Plan: Patient is 70 years of age admitted with new onset of congestive heart failure confirmed by an echocardiogram patient is subjectively feeling better she has a history of hyperthyroidism and was on methimazole patient has not used methimazole for the past 2 years appears to be 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
--- NOTE | 2024-08-26 20:44 | RAD REPORT ---
EXAMINATION: ONE VIEW CHEST XR CLINICAL INDICATION: Female, 74 years old.,Congestive heart failure TECHNIQUE: Frontal chest projection is submitted. Examination is limited by patient positioning and t echnique. COMPARISON: 08/25/2024 FINDINGS: The lungs are well inflated and clear apart from streaky left basilar atelectasis, with or without sm all effusion. No pneumothorax or sizable effusion. The heart is normal in size. Mediastinal contours are unremarkable. Dextroconvex midthoracic scoliosis. IMPRESSION: Probable trace left effusion and underlying atelectasis.
[2024-08-27] MEDS: LEVOTHYROXINE SOD 0.05 MG TABLET PO SCH (06:25)
[2024-08-27 07:16] LABS: Absolute Basophils 0.1 K/uL (0-0.5); Absolute Eosinophils 0.2 K/uL (0-0.5); Absolute Lymphocytes (CBC) 2.9 K/uL (0.7-4.9); Absolute Neutrophil 7.8 K/uL (1.8-8.0); Eosinophils % 1.5 % (0-4.4); Hematocrit 36.3 % (36.0-45.0); Hemoglobin 12.3 g/dL (12.0-15.0); Lymphocytes % 24.6 % (15.3-44.8); MCH 29.7 pg (27.0-35.0); MCHC 33.8 g/dL (32.0-36.0); MCV 87.9 fL (80-100); MPV 9.4 fL (7.6-11.3); Neutrophils % 64.9 % (41.7-73.7); Platelets 258 thou/uL (152-406); RBC Red Blood Cell Count 4.14 M/uL (3.86-4.86); Red Cell Distribution Width 14.1 % (12.1-15.2)
[2024-08-27 07:29] LABS: Anion Gap 11.6 mEq/L (5.0-15.0); Potassium 3.6 mEq/L (3.5-5.1)
[2024-08-27] MEDS: AZITHROMYCIN 250 MG TAB PO SCH (08:10)
[2024-08-27] MEDS: CEFTRIAXONE 1,000 MG in NA CHLORIDE 0.9% 50 ML IVPB SCH (08:11)
--- NOTE | 2024-08-27 08:36 | RAD REPORT ---
EXAMINATION: ONE VIEW CHEST XR CLINICAL INDICATION: Female, 74 years old.,Congestive heart failure TECHNIQUE: Frontal chest projection is submitted. Examination is limited by patient positioning and t echnique. COMPARISON: 08/26/2024 FINDINGS: The lungs again show left basilar atelectasis, and possible chronic trace effusion, although suboptim al inspiratory effort somewhat limits evaluation. No pneumothorax or sizable effusion. The heart is normal in size. Mediastinal contours are unremarkable. IMPRESSION: No acute intrathoracic abnormalities. Stable findings as above.
[2024-08-27] MEDS: METOPROLOL TAR 25 MG TAB PO SCH (09:07)
[2024-08-27] MEDS: ASPIRIN 81 MG CHEWABLE TABLET PO SCH (09:07)
--- NOTE | 2024-08-27 12:38 | P.PN ---
Subjective Date of Service: 08/27/24 Chief Complaint: Congestive heart failure hypothyroidism Subjective: No new changes, No C/O voiced, Tolerating diet, Ambulating, Improving Review of Systems 10-point ROS is otherwise unremarkable Physical Examination - Vital Signs Temperature: 97.5 F Blood Pressure: 101/70 Pulse: 77 Respirations: 18 Pulse Ox (%): 99 - Physical Exam General: Alert, In no apparent distress HEENT: Atraumatic, PERRLA, EOMI Neck: Supple, JVD not distended Respiratory: Clear to auscultation bilaterally, Normal air movement Cardiovascular: Regular rate/rhythm, Normal S1 S2 Gastrointestinal: Normal bowel sounds, No tenderness Musculoskeletal: No tenderness Integumentary: No rashes Neurological: Normal speech, Normal tone, Normal affect Lymphatics: No axilla or inguinal lymphadenopathy - Studies Medications List Reviewed: Yes Assessment And Plan - Current Problems (Diagnosis) (1) Hypothyroid Current Visit: Yes Status: Acute Plan: patient TSH is high, need to be complaint with her thyroid medications and maybe adjusted by primary team. (2) Acute respiratory failure with hypoxia and hypercarbia Current Visit: Yes Status: Acute Plan: patient have significant leukocytosis and high CO2, she is hypotensive with lactic acidosis, she might be septic, pending blood cultures, getting treated with abx for possible PNA. (3) CHF (congestive heart failure) Current Visit: Yes Status: Acute Plan: Echo shows moderate reduced LV systolic function with DD, need to rule out CAD as a reason but can be secondary to hypothyroid change lasix to 40 mg po daily add aldactone 25 mg daily continue Metoprolol 25 mg po BID continue to monitor input and output and electrolytes NPO after Friday midnight for coronary angiogram Friday. Qualifiers: Heart failure chronicity: unspecified
--- NOTE | 2024-08-27 18:05 | P.PN ---
Subjective Date of Service: 08/27/24 Chief Complaint: Congestive heart failure hypothyroidism No acute events, stated that she is feeling better with respect to shortness of breath Review of Systems 10-point ROS is otherwise unremarkable Physical Examination - Vital Signs Temperature: 97.5 F Blood Pressure: 105/60 Pulse: 87 Respirations: 18 Pulse Ox (%): 97 - Physical Exam General: Alert, Oriented x3 HEENT: Atraumatic, PERRLA Respiratory: Clear to auscultation bilaterally Cardiovascular: No edema Gastrointestinal: Normal bowel sounds, Hypoactive, Soft and benign Musculoskeletal: No clubbing, No swelling Neurological: Normal gait, Normal speech, Normal strength at 5/5 x4 extr - Studies Medications List Reviewed: Yes Assessment And Plan - Plan 1. Acute hypoxic respiratory failure secondary to likely acute systolic CHF exacerbation -2D echo showed LVEF of 35 to 40% -CT of chest positive for CHF -Lasix currently on hold due to marked hypotension -Overall clinically improved, currently on 2 L of oxygen with sats in the mid 90s 2. Marked leukocytosis -Trending down on IV Lasix 3. Elevated lactic acid --Resolved 4. Hypothyroidism --On levothyroxine at home dose 5. Hypokalemia -- Replace and recheck 6. DVT prophylaxis - Subcu Lovenox 7. Deconditioned status - PT/OT eval pending
[2024-08-28 07:22] LABS: Absolute Basophils 0.1 K/uL (0-0.5); Absolute Eosinophils 0.3 K/uL (0-0.5); Absolute Lymphocytes (CBC) 1.6 K/uL (0.7-4.9); Absolute Monocytes 0.7 K/uL (0.1-1.3); Absolute Neutrophil 4.1 K/uL (1.8-8.0); Basophils % 1.2 % (0-1.3); Eosinophils % 4.9 % (0-4.4); Hematocrit 40.2 % (36.0-45.0); Hemoglobin 13.3 g/dL (12.0-15.0); Lymphocytes % 23.3 % (15.3-44.8); MCHC 33.1 g/dL (32.0-36.0); MCV 87.7 fL (80-100); MPV 8.9 fL (7.6-11.3); Monocytes % 10.6 % (3.3-12.3); Nucleated Red Blood Cells % 0.3 % (0-0); Platelets 299 thou/uL (152-406); RBC Red Blood Cell Count 4.58 M/uL (3.86-4.86); Red Cell Distribution Width 13.8 % (12.1-15.2)
[2024-08-28 07:31] LABS: Anion Gap 9.7 mEq/L (5.0-15.0); Potassium 3.7 mEq/L (3.5-5.1)
[2024-08-28] MEDS: NA CHLORIDE 0.9% 500 ML IV ONE (08:49)
[2024-08-28] MEDS: SPIRONOLACTONE 25 MG TABLET PO SCH (09:00)
--- NOTE | 2024-08-28 11:19 | P.PN ---
Subjective Date of Service: 08/28/24 Chief Complaint: Congestive heart failure hypothyroidism No acute events, stated that she is feeling better with respect to shortness of breath Review of Systems 10-point ROS is otherwise unremarkable Physical Examination - Vital Signs Temperature: 97.7 F Blood Pressure: 100/70 Pulse: 77 Respirations: 14 Pulse Ox (%): 0 - Physical Exam General: Alert, Oriented x3 HEENT: Atraumatic, Normocephalic, PERRLA Respiratory: Clear to auscultation bilaterally, Normal air movement Cardiovascular: No edema, Normal pulses, Regular rate/rhythm Gastrointestinal: Normal bowel sounds, Soft and benign, Non-distended Musculoskeletal: No clubbing, No swelling Neurological: Normal gait, Normal speech, Normal strength at 5/5 x4 extr - Studies Medications List Reviewed: Yes Assessment And Plan - Plan 1. Acute hypoxic respiratory failure secondary to likely acute systolic CHF exacerbation -2D echo showed LVEF of 35 to 40% -CT of chest positive for CHF -Lasix currently on hold due to marked hypotension -Overall clinically improved, currently on 2 L of oxygen with sats in the mid 90s 2. Symptomatic hypotension - Likely secondary to diuresis - Discontinued IV Lasix - Ordered bolus of NS, 500 mL x 1 3. Marked leukocytosis -Trending down on IV Lasix 4. Elevated lactic acid --Resolved 5. Hypothyroidism --On levothyroxine at home dose 6. Hypokalemia -- Replace and recheck 7. DVT prophylaxis - Subcu Lovenox 8. Deconditioned status - PT/OT eval pending
--- NOTE | 2024-08-28 11:42 | P.PN ---
Subjective Date of Service: 08/28/24 Chief Complaint: Congestive heart failure hypothyroidism Patient is improving doing much better no new complaints scheduled for a cardiac cath on Friday Review of Systems Unremarkable Physical Examination - Vital Signs Temperature: 97.7 F Blood Pressure: 100/70 Pulse: 77 Respirations: 14 Pulse Ox (%): 0 - Physical Exam General: Oriented x3 Neck: Supple Respiratory: Clear to auscultation bilaterally Cardiovascular: No edema, Regular rate/rhythm - Studies Medications List Reviewed: Yes Assessment And Plan - Current Problems (Diagnosis) (1) CHF (congestive heart failure) Current Visit: Yes Status: Acute Plan: Patient is 74 years of age admitted with acute congestive heart failure and hypothyroidism is currently doing much better tolerating beta-tucker scheduled for a cardiac catheter Friday white count is now normal chest x-ray has improved 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
[2024-08-28] MEDS: PNEUMOCOCCAL VACCINE 0.5 ML IMVAC ONE (15:24)
[2024-08-28] MEDS: AMOX/K CLAV 500 MG TAB PO SCH (21:02)
[2024-08-29 07:23] LABS: Absolute Basophils 0.1 K/uL (0-0.5); Absolute Eosinophils 0.3 K/uL (0-0.5); Absolute Lymphocytes (CBC) 1.9 K/uL (0.7-4.9); Absolute Monocytes 0.8 K/uL (0.1-1.3); Absolute Neutrophil 2.5 K/uL (1.8-8.0); Basophils % 0.9 % (0-1.3); Hematocrit 39.3 % (36.0-45.0); Hemoglobin 13.1 g/dL (12.0-15.0); Lymphocytes % 33.9 % (15.3-44.8); MCH 29.4 pg (27.0-35.0); MCHC 33.4 g/dL (32.0-36.0); MCV 88.3 fL (80-100); MPV 9.1 fL (7.6-11.3); Monocytes % 14.4 % (3.3-12.3); Neutrophils % 44.8 % (41.7-73.7); Platelets 235 thou/uL (152-406); RBC Red Blood Cell Count 4.46 M/uL (3.86-4.86); Red Cell Distribution Width 13.9 % (12.1-15.2)
[2024-08-29 07:38] LABS: Anion Gap 8.8 mEq/L (5.0-15.0); Potassium 3.8 mEq/L (3.5-5.1)
--- NOTE | 2024-08-29 10:03 | P.PN ---
Subjective Date of Service: 08/29/24 Chief Complaint: Congestive heart failure hypothyroidism Patient is doing well no new complaints scheduled for a cardiac cath tomorrow blood pressure is little low Review of Systems Unremarkable Physical Examination - Vital Signs Temperature: 98.2 F Blood Pressure: 97/56 Pulse: 79 Respirations: 14 Pulse Ox (%): 95 - Physical Exam General: Alert, Oriented x3 Respiratory: Clear to auscultation bilaterally, Diminished Cardiovascular: No edema, Regular rate/rhythm - Studies Medications List Reviewed: Yes Assessment And Plan - Current Problems (Diagnosis) (1) CHF (congestive heart failure) Current Visit: Yes Status: Acute Plan: Patient is 74 years of age admitted with congestive heart failure scheduled for a cardiac cath tomorrow blood pressure is little low reduce dose of spironolactone to 12.5 twice a day reduce dose of metoprolol ambulate patient possible discharge tomorrow she is still very weak oxygenation satisfactory chest x-ray has improved white count is now normal patient is on Augmentin dose of levothyroxine will need to be adjusted as an outpatient Qualifiers: Heart failure type: combined systolic and diastolic Heart failure chronicity: unspecified Qualified Code(s): I50.40 - Unspecified combined systolic (congestive) and diastolic (congestive) heart failure
--- NOTE | 2024-08-29 12:08 | P.PN ---
Subjective Date of Service: 08/29/24 Chief Complaint: Congestive heart failure hypothyroidism No acute events, stated that she is feeling better with respect to shortness of breath Review of Systems 10-point ROS is otherwise unremarkable Physical Examination - Vital Signs Temperature: 98.2 F Blood Pressure: 97/56 Pulse: 79 Respirations: 14 Pulse Ox (%): 95 - Physical Exam General: Alert, Oriented x3 HEENT: Atraumatic Neck: Supple Respiratory: Clear to auscultation bilaterally Cardiovascular: No edema, Regular rate/rhythm Gastrointestinal: Normal bowel sounds, Soft and benign, Non-distended Integumentary: No rashes Neurological: Normal gait - Studies Medications List Reviewed: Yes Assessment And Plan - Plan 1. Acute hypoxic respiratory failure secondary to likely acute systolic CHF exacerbation -2D echo showed LVEF of 35 to 40% -CT of chest positive for CHF -Lasix currently on hold due to marked hypotension -Continue metoprolol and spironolactone -Overall clinically improved, currently on 2 L of oxygen with sats in the mid 90s - Plan for coronary angiogram on 08/30/24 2. Symptomatic hypotension - Likely secondary to diuresis - Discontinued IV Lasix - on 08/28/2024, Ordered bolus of NS, 500 mL x 1 3. Marked leukocytosis, concern for underlying pneumonia -On Augmentin -Trending down 4. Elevated lactic acid --Resolved 5. Hypothyroidism --On levothyroxine at home dose 6. Hypokalemia -- Replace and recheck 7. DVT prophylaxis - Subcu Lovenox 8. Deconditioned status - PT/OT eval pending
--- NOTE | 2024-08-29 12:20 | P.PN ---
Subjective Date of Service: 08/29/24 Chief Complaint: Congestive heart failure hypothyroidism Subjective: No new changes, No C/O voiced, Tolerating diet, Ambulating, Improving Review of Systems 10-point ROS is otherwise unremarkable Physical Examination - Vital Signs Temperature: 98.2 F Blood Pressure: 97/56 Pulse: 79 Respirations: 14 Pulse Ox (%): 95 - Physical Exam General: Alert, In no apparent distress HEENT: Atraumatic, PERRLA, EOMI Neck: Supple, JVD not distended Respiratory: Clear to auscultation bilaterally, Normal air movement Cardiovascular: Regular rate/rhythm, Normal S1 S2 Gastrointestinal: Normal bowel sounds, No tenderness Musculoskeletal: No tenderness Integumentary: No rashes Neurological: Normal speech, Normal tone, Normal affect Lymphatics: No axilla or inguinal lymphadenopathy - Studies Medications List Reviewed: Yes Assessment And Plan - Current Problems (Diagnosis) (1) Hypothyroid Current Visit: Yes Status: Acute Plan: patient TSH is high, need to be complaint with her thyroid medications and maybe adjusted by primary team. (2) Acute respiratory failure with hypoxia and hypercarbia Current Visit: Yes Status: Acute Plan: patient have significant leukocytosis and high CO2, she is hypotensive with lactic acidosis, she might be septic, pending blood cultures, getting treated with abx for possible PNA. (3) CHF (congestive heart failure) Current Visit: Yes Status: Acute Plan: Echo shows moderate reduced LV systolic function with DD, need to rule out CAD as a reason but can be secondary to hypothyroid change lasix to 20 mg po daily agree with aldactone 12.5 mg daily continue Metoprolol 12.5 mg po BID continue to monitor input and output and electrolytes NPO after midnight for coronary angiogram Friday. Qualifiers: Heart failure type: combined systolic and diastolic Heart failure adult crossing guard nicity: unspecified Qualified Code(s): I50.40 - Unspecified combined systolic (congestive) and diastolic (congestive) heart failure
[2024-08-29] MEDS: DOCUSATE NA/SENNA CONC 1 TAB PO SCH (20:02)
[2024-08-29] MEDS: METOPROLOL TAR 25 MG TAB PO SCH (20:03)
[2024-08-29] MEDS: ALBUTEROL 2.5 MG/3 ML NEB SOL NEB PRN (22:40)
[2024-08-29] MEDS: BENZONATATE 100 MG CAP PO PRN (23:13)
[2024-08-30 08:06] LABS: Absolute Eosinophils 0.4 K/uL (0-0.5); Absolute Lymphocytes (CBC) 2.3 K/uL (0.7-4.9); Absolute Monocytes 0.8 K/uL (0.1-1.3); Absolute Neutrophil 3.7 K/uL (1.8-8.0); Basophils % 0.7 % (0-1.3); Eosinophils % 5.2 % (0-4.4); Hematocrit 40.2 % (36.0-45.0); Hemoglobin 13.6 g/dL (12.0-15.0); Lymphocytes % 31.7 % (15.3-44.8); MCH 29.9 pg (27.0-35.0); MCHC 33.9 g/dL (32.0-36.0); MCV 88.2 fL (80-100); MPV 9.1 fL (7.6-11.3); Monocytes % 11.1 % (3.3-12.3); Neutrophils % 51.3 % (41.7-73.7); Nucleated Red Blood Cells % 0.1 % (0-0); Platelets 246 thou/uL (152-406); RBC Red Blood Cell Count 4.56 M/uL (3.86-4.86); Red Cell Distribution Width 13.4 % (12.1-15.2)
[2024-08-30 08:13] LABS: Anion Gap 7.9 mEq/L (5.0-15.0); Potassium 3.9 mEq/L (3.5-5.1)
[2024-08-30] MEDS: FENTANYL CITR 100 MCG/2 ML ONE (08:35)
[2024-08-30] MEDS ORDERED: HEPARIN 10,000 UNIT/10 ML VIAL IV ONE (08:35)
[2024-08-30] MEDS ORDERED: TICAGRELOR 90 MG TABLET PO ONE (08:35)
[2024-08-30] MEDS ORDERED: CLOPIDOGREL 75 MG TABLET ONE (08:35)
[2024-08-30] MEDS ORDERED: HEPA 1000U/500MLS 2,000 UNIT/1,000 ML BAG IV ONE (08:35)
[2024-08-30] MEDS ORDERED: ATROPINE SULF 1 MG/10 ML SYR IV ONE (08:35)
[2024-08-30] MEDS ORDERED: LIDOCAINE 1% 20 ML MDV ONE (08:35)
[2024-08-30] MEDS: MIDAZOLAM HCL 2 MG/2 ML INJ ONE (08:35)
[2024-08-30] MEDS ORDERED: HEPARIN 5000 UNIT/ML 1 ML VIAL ONE (08:35)
[2024-08-30] MEDS ORDERED: FLUMAZENIL 0.1 MG/ML (5 mL VIAL) IV ONE (08:36)
[2024-08-30] MEDS ORDERED: NALOXONE 0.4 MG/ML VIAL ONE (08:36)
[2024-08-30] MEDS ORDERED: ASPIRIN 325 MG TAB ONE (08:36)
[2024-08-30] MEDS: NA CHLORIDE 0.9% 500 ML ONE (08:38)
[2024-08-30] MEDS: SPIRONOLACTONE 25 MG TABLET PO SCH (09:00)
[2024-08-30] MEDS: POLYETHYL GLY 3350 17 GM/DOSE PO SCH (09:00)
--- NOTE | 2024-08-30 10:15 | P.PN ---
Subjective Date of Service: 08/30/24 Chief Complaint: Congestive heart failure hypothyroidism Subjective: No new changes, No C/O voiced, Tolerating diet, Ambulating, Improving Review of Systems 10-point ROS is otherwise unremarkable Physical Examination - Vital Signs Temperature: 97.9 F Blood Pressure: 125/76 Pulse: 83 Respirations: 17 Pulse Ox (%): 95 - Physical Exam General: Alert, In no apparent distress HEENT: Atraumatic, PERRLA, EOMI Neck: Supple, JVD not distended Respiratory: Clear to auscultation bilaterally, Normal air movement Cardiovascular: Regular rate/rhythm, Normal S1 S2 Gastrointestinal: Normal bowel sounds, No tenderness Musculoskeletal: No tenderness Integumentary: No rashes Neurological: Normal speech, Normal tone, Normal affect Lymphatics: No axilla or inguinal lymphadenopathy - Studies Medications List Reviewed: Yes Assessment And Plan - Current Problems (Diagnosis) (1) Hypothyroid Current Visit: Yes Status: Acute Plan: patient TSH is high, need to be complaint with her thyroid medications and maybe adjusted by primary team. (2) Acute respiratory failure with hypoxia and hypercarbia Current Visit: Yes Status: Acute Plan: patient have significant leukocytosis and high CO2, she is hypotensive with lactic acidosis, she might be septic, pending blood cultures, getting treated with abx for possible PNA. (3) CHF (congestive heart failure) Current Visit: Yes Status: Acute Plan: Echo shows moderate reduced LV systolic function with DD, need to rule out CAD as a reason but can be secondary to hypothyroid change lasix to 20 mg po daily agree with aldactone 12.5 mg daily continue Metoprolol 12.5 mg po BID continue to monitor input and output and electrolytes Qualifiers: Heart failure type: combined systolic and diastolic Heart failure chronicity: unspecified Qualified Code(s): I50.40 - Unspecified combined systolic (congestive) and diastolic (congestive) heart failure (4) CAD (coronary artery disease) Current Visit: Yes Status: Acute Plan: Patient had a coronary angiogram done today and she is s/p stent of LAD disease ASA 81 mg daily for life. Brilinta 90 mg po BID Lipitor 40 mg daily
--- NOTE | 2024-08-30 11:16 | OP ---
Date of Procedure: 08/30/2024 Surgeon: Hilario Bazzi Procedures Performed: 1. Selective coronary angiogram. 2. PCI of the LAD with Synergy 3.0 x 16 mm drug-eluting stent. Indication For Procedure: Heart failure due to CHF. Complications: None. Estimated Blood Loss: Less than 50 cc. Access: Right radial, closed by TR band. Sedation Time: 30 minutes with 1 of Versed and 25 of fentanyl. Description Of Procedure: After risks, and benefits, and alternatives were explained to the patient, patient agreed to proceed with procedure and signed informed consent. The patient was brought back to the electrical laboratory technician, prepped and draped in sterile fashion. Time-out was performed. Sedation was admini stered. Next, right radial access was obtained using ultrasound-guided micropuncture technique. Tig er 4.0 catheter was advanced over a J-wire to the aortic root. Selective angiogram was done on the l eft coronary system that was exchanged for a JR4 catheter for the right coronary system and that was later exchanged for an XB LAD 3.0 mm guide. Heparin was administered. ACT was therapeutic. Runthro ugh wire was passed across the lesions, pre-dilated the lesion with an NC 2.5 mm balloon. Next, Syne rgy 3.0 x 16 mm drug-eluting stent was placed across the lesion, postdilated with an NC 3.5 mm balloo n. Final angiogram shows TESS-3 flow. Wire was removed. Catheter was removed over a J-wire. Sheat h was removed. TR band was applied. Hemostasis was achieved. Then the patient was moved back to [facility] in stable condition. Findings: 1. Left main normal. 2. LAD; tortuous with mid 80% disease, status post PCI as above, then mid to distal mild luminal irre gularities, gives a large diagonal with mild luminal irregularities. 3. Left circ; mild luminal irregularities. 4. RCA; diagonal 1 takeoff with mild luminal irregularities. Assessment And Plan: Significant mid LAD disease, status post PCI with Synergy 3.0 x 16 mm drug-elut ing stent. Aspirin 81 mg daily for life. Brilinta 180 mg x1 was given in the electrical laboratory technician, continue Brilinta 90 mg p.o. b.i.d. Continue aggressive medical treatment for CAD. GUERIN/MODL Voice ID: [id number] Report ID: [id number]
--- NOTE | 2024-08-30 13:30 | P.PN ---
Subjective Date of Service: 08/30/24 Chief Complaint: Congestive heart failure hypothyroidism Subjective: No chest pain or shortness of breath. No nausea or vomiting. No abdominal pain. No obvious bleeding. Looks comfortable in the bed. Had a cardiac cath, recovering in the PACU Objective: General appearance: Alert and comfortable CVS: Normal S1 and S2 Lungs: Clear to auscultation bilaterally Abdomen: Soft, bowel sounds present, no tenderness Extremities: No lower extremity edema Physical Examination - Vital Signs Temperature: 97.9 F Blood Pressure: 121/74 Pulse: 85 Respirations: 17 Pulse Ox (%): 95 - Studies Microbiology Data (last 24 hrs): 08/25/24 10:30 Blood - Blood Aerobic Blood Culture - Final No growth in 5 days. 08/25/24 10:30 Blood - Blood Anaerobic Blood Culture - Final No growth in 5 days. 08/25/24 10:15 Blood - Blood Aerobic Blood Culture - Final No growth in 5 days. 08/25/24 10:15 Blood - Blood Anaerobic Blood Culture - Final No growth in 5 days. Medications List Reviewed: Yes Assessment And Plan - Plan 1. Acute hypoxic respiratory failure secondary to likely acute systolic CHF exacerbation -2D echo showed LVEF of 35 to 40% -CT of chest positive for CHF -Lasix currently on hold -Continue metoprolol and spironolactone, add Entresto -Overall clinically improved, 2. Symptomatic hypotension - Likely secondary to diuresis - improved 3. Marked leukocytosis, concern for underlying pneumonia -On Augmentin -Trending down 4. Elevated lactic acid 5. Hypothyroidism --On levothyroxine at home dose - TSH high, free T4 low, need follow-up with PCP with repeat labs 6. Hypokalemia -- Replaced 7. Coronary disease status post stent placement today: Continue aspirin, Brilinta, start statin. Plan discussed with the patient and case management team.
[2024-08-30] MEDS: SACUBITRIL/VALSARTAN 24/26 MG TAB PO SCH (20:16)
[2024-08-30] MEDS: ATORVASTATIN 40 MG TAB PO SCH (20:16)
[2024-08-30] MEDS: TICAGRELOR 90 MG TABLET PO SCH (20:16)
[2024-08-31 07:37] LABS: Absolute Basophils 0.1 K/uL (0-0.5); Absolute Eosinophils 0.4 K/uL (0-0.5); Absolute Lymphocytes (CBC) 2.3 K/uL (0.7-4.9); Absolute Monocytes 0.8 K/uL (0.1-1.3); Absolute Neutrophil 4.7 K/uL (1.8-8.0); Basophils % 0.7 % (0-1.3); Eosinophils % 5.1 % (0-4.4); Hematocrit 42.9 % (36.0-45.0); Hemoglobin 14.4 g/dL (12.0-15.0); Lymphocytes % 27.4 % (15.3-44.8); MCH 29.6 pg (27.0-35.0); MCHC 33.6 g/dL (32.0-36.0); MPV 8.9 fL (7.6-11.3); Monocytes % 9.6 % (3.3-12.3); Neutrophils % 57.2 % (41.7-73.7); Nucleated Red Blood Cells % 0.1 % (0-0); Platelets 285 thou/uL (152-406); RBC Red Blood Cell Count 4.87 M/uL (3.86-4.86); Red Cell Distribution Width 13.6 % (12.1-15.2)
[2024-08-31 07:50] LABS: Anion Gap 11.6 mEq/L (5.0-15.0); Potassium 3.6 mEq/L (3.5-5.1)
--- NOTE | 2024-08-31 11:15 | RAD REPORT ---
Procedure: Chest Pa And Lat (2 Views) HISTORY: Cough COMPARISON: August 27, 2024 FINDINGS: The lungs appear clear of acute infiltrate.. Calcified lung granulomas. No significant pleural effusion noted. The heart is normal size. IMPRESSION: No acute abnormality is displayed.
--- NOTE | 2024-08-31 11:47 | P.PN ---
Subjective Date of Service: 08/31/24 Chief Complaint: Congestive heart failure hypothyroidism Subjective: No new changes, No C/O voiced, Tolerating diet, Ambulating, Improving Review of Systems 10-point ROS is otherwise unremarkable Physical Examination - Vital Signs Temperature: 97.8 F Blood Pressure: 105/67 Pulse: 76 Respirations: 18 Pulse Ox (%): 98 - Physical Exam General: Alert, In no apparent distress HEENT: Atraumatic, PERRLA, EOMI Neck: Supple, JVD not distended Respiratory: Clear to auscultation bilaterally, Normal air movement Cardiovascular: Regular rate/rhythm, Normal S1 S2 Gastrointestinal: Normal bowel sounds, No tenderness Musculoskeletal: No tenderness Integumentary: No rashes Neurological: Normal speech, Normal tone, Normal affect Lymphatics: No axilla or inguinal lymphadenopathy - Studies Microbiology Data (last 24 hrs): 08/25/24 10:30 Blood - Blood Aerobic Blood Culture - Final No growth in 5 days. 08/25/24 10:30 Blood - Blood Anaerobic Blood Culture - Final No growth in 5 days. 08/25/24 10:15 Blood - Blood Aerobic Blood Culture - Final No growth in 5 days. 08/25/24 10:15 Blood - Blood Anaerobic Blood Culture - Final No growth in 5 days. Medications List Reviewed: Yes Assessment And Plan - Current Problems (Diagnosis) (1) Hypothyroid Current Visit: Yes Status: Acute Plan: patient TSH is high, need to be complaint with her thyroid medications and maybe adjusted by primary team. (2) Acute respiratory failure with hypoxia and hypercarbia Current Visit: Yes Status: Acute Plan: patient have significant leukocytosis and high CO2, she is hypotensive with lactic acidosis, she might be septic, pending blood cultures, getting treated with abx for possible PNA. (3) CHF (congestive heart failure) Current Visit: Yes Status: Acute Plan: Echo shows moderate reduced LV systolic function with DD, need to rule out CAD as a reason but can be secondary to hypothyroid change lasix to 20 mg po daily agree with aldactone 12.5 mg daily continue Metoprolol 12.5 mg po BID continue to monitor input and output and electrolytes Qualifiers: Heart failure type: combined systolic and diastolic Heart failure chronicity: unspecified Qualified Code(s): I50.40 - Unspecified combined systolic (congestive) and diastolic (congestive) heart failure (4) CAD (coronary artery disease) Current Visit: Yes Status: Acute Plan: Patient had a coronary angiogram done today and she is s/p stent of LAD disease ASA 81 mg daily for life. Brilinta 90 mg po BID Lipitor 40 mg daily Cardiology will sign off, please call with any questions
--- NOTE | 2024-08-31 16:51 | P.PN ---
Subjective Date of Service: 08/31/24 Chief Complaint: Congestive heart failure hypothyroidism Subjective: No chest pain. c/o shortness of breath with activity. No nausea or vomiting. No abdominal pain. No obvious bleeding. Looks comfortable in the bed. Objective: General appearance: Alert and comfortable CVS: Normal S1 and S2 Lungs: Clear to auscultation bilaterally Abdomen: Soft, bowel sounds present, no tenderness Extremities: No lower extremity edema Physical Examination - Vital Signs Temperature: 97.5 F Blood Pressure: 85/64 Pulse: 82 Respirations: 18 Pulse Ox (%): 97 - Studies Medications List Reviewed: Yes Assessment And Plan - Plan 1. Acute hypoxic respiratory failure secondary to likely acute systolic CHF exacerbation -2D echo showed LVEF of 35 to 40% -CT of chest positive for CHF -Lasix currently on hold, resume low dose today -Continue metoprolol and spironolactone, add Entresto, BP soft but tolerting meds ok -CXR neg today, check BNP in AM 2. Symptomatic hypotension - Likely secondary to diuresis - improved 3. Marked leukocytosis, concern for underlying pneumonia -On Augmentin -Trending down 4. Elevated lactic acid 5. Hypothyroidism --On levothyroxine at home dose - TSH high, free T4 low, need follow-up with PCP with repeat labs 6. Hypokalemia -- Replaced 7. Coronary disease status post stent placement on 08/30: Continue aspirin, Brilinta, start statin. Plan discussed with the patient and family at bedside, d/w case management team. DC home soon
[2024-08-31] MEDS: FUROSEMIDE 20 MG TABLET PO SCH (18:09)
[2024-09-01 05:33] LABS: Absolute Basophils 0.1 K/uL (0-0.5); Absolute Eosinophils 0.4 K/uL (0-0.5); Absolute Lymphocytes (CBC) 2.1 K/uL (0.7-4.9); Absolute Monocytes 0.7 K/uL (0.1-1.3); Absolute Neutrophil 4.4 K/uL (1.8-8.0); Basophils % 0.7 % (0-1.3); Eosinophils % 5.1 % (0-4.4); Hematocrit 41.8 % (36.0-45.0); Hemoglobin 14.1 g/dL (12.0-15.0); Lymphocytes % 27.5 % (15.3-44.8); MCH 29.3 pg (27.0-35.0); MCHC 33.7 g/dL (32.0-36.0); MCV 86.8 fL (80-100); MPV 8.8 fL (7.6-11.3); Monocytes % 9.1 % (3.3-12.3); Neutrophils % 57.6 % (41.7-73.7); Nucleated Red Blood Cells % 0.1 % (0-0); Platelets 271 thou/uL (152-406); RBC Red Blood Cell Count 4.82 M/uL (3.86-4.86); Red Cell Distribution Width 13.6 % (12.1-15.2)
[2024-09-01] MEDS: METOPROLOL XL 25 MG TAB PO SCH (05:49)
[2024-09-01 06:03] LABS: Anion Gap 12.4 mEq/L (5.0-15.0); Potassium 3.4 mEq/L (3.5-5.1)
--- NOTE | 2024-09-01 12:46 | P.PN ---
Subjective Date of Service: 09/01/24 Chief Complaint: Congestive heart failure hypothyroidism Subjective: No chest pain. shortness of breath with activity improving. No nausea or vomiting. No abdominal pain. No obvious bleeding. Looks comfortable in the bed. Objective: General appearance: Alert and comfortable CVS: Normal S1 and S2 Lungs: Clear to auscultation bilaterally Abdomen: Soft, bowel sounds present, no tenderness Extremities: No lower extremity edema Physical Examination - Vital Signs Temperature: 98.2 F Blood Pressure: 111/79 Pulse: 98 Respirations: 16 Pulse Ox (%): 100 - Studies Medications List Reviewed: Yes Assessment And Plan - Plan 1. Acute hypoxic respiratory failure secondary to likely acute systolic CHF exacerbation -2D echo showed LVEF of 35 to 40% -CT of chest positive for CHF -Lasix PO -Continue metoprolol and spironolactone, add Entresto, BP soft but tolerting meds ok -CXR neg 08/31, BNP improving 2. Symptomatic hypotension - Likely secondary to diuresis - improved 3. Marked leukocytosis, concern for underlying pneumonia -On Augmentin -Trending down 4. Elevated lactic acid 5. Hypothyroidism --On levothyroxine at home dose - TSH high, free T4 low, need follow-up with PCP with repeat labs 6. Hypokalemia -- Replace and monitor, may need to go home on PO potassium along with lasix 7. Coronary disease status post stent placement on 08/30: Continue aspirin, Brilinta, and statin. Plan discussed with the patient and family at bedside, d/w case management team. DC home tomorrow, feels not ready to go home yet
[2024-09-01] MEDS: POTASSIUM CL SA 10 MEQ TAB PO ONE (13:38)
[2024-09-01] MEDS ORDERED: ACETAMINOPHEN 325 MG TABLET PO PRN (19:35)
[2024-09-01] MEDS: ACETAMIN/CAFFEINE/BUTALB TAB PO PRN (20:17)
[2024-09-02 06:37] LABS: Absolute Eosinophils 0.4 K/uL (0-0.5); Absolute Lymphocytes (CBC) 2.4 K/uL (0.7-4.9); Absolute Monocytes 0.7 K/uL (0.1-1.3); Absolute Neutrophil 4.2 K/uL (1.8-8.0); Basophils % 0.6 % (0-1.3); Eosinophils % 5.1 % (0-4.4); Hematocrit 40.8 % (36.0-45.0); Hemoglobin 13.7 g/dL (12.0-15.0); Lymphocytes % 31.6 % (15.3-44.8); MCH 29.5 pg (27.0-35.0); MCHC 33.5 g/dL (32.0-36.0); MPV 8.9 fL (7.6-11.3); Monocytes % 8.7 % (3.3-12.3); Platelets 259 thou/uL (152-406); RBC Red Blood Cell Count 4.64 M/uL (3.86-4.86); Red Cell Distribution Width 13.6 % (12.1-15.2)
[2024-09-02 06:48] LABS: Anion Gap 11.1 mEq/L (5.0-15.0); Magnesium 1.9 mg/dL (1.6-2.4); Phosphorus 2.9 mg/dL (2.5-4.9); Potassium 4.1 mEq/L (3.5-5.1)
--- NOTE | 2024-09-02 10:41 | P.DS ---
Admission Date: 08/25/24 Discharge Date: 09/02/24 Disposition: DC HOME/HOME HEALTH CARE Discharge Condition: GOOD Reason for Admission: Congestive heart failure hypothyroidism Hospital Course: Discharge diagnosis: 1. Acute hypoxic respiratory failure secondary to acute systolic CHF exacerbation -2D echo showed LVEF of 35 to 40% -CT of chest positive for CHF -Lasix PO at Discharge -Continue metoprolol and spironolactone, add Entresto, BP soft but tolerting meds ok -CXR neg 08/31, BNP improving 2. Symptomatic hypotension - Likely secondary to diuresis - improved 3. Marked leukocytosis, concern for underlying pneumonia -given Augmentin -WBC normal now 4. Elevated lactic acid 5. Hyperthyroidism --On methimazole - TSH high, free T4 low, need follow-up with PCP / endocrinoiology with repeat labs 6. Hypokalemia -- Replaced 7. Coronary disease status post stent placement on 08/30: Continue aspirin, Brilinta, and statin. Plan discussed with the patient and nursing staff, d/w case management team. DC home today 74-year-old patient admitted with acute hypoxic respiratory failure secondary to CHF exacerbation, she was given diuretics, there was also some concern of pneumonia, she was given antibiotics, with the treatment she was slowly improving, she was found to have a low ejection fraction, cardiology was consulted, she had an angiogram and stent placed, she was started on heart failure medications, initially her blood pressure was soft, overall her blood pressure is better now, tolerating medications, when I see the patient today she is doing well without any acute problems and feels ready to go home, otherwise no other acute issues going on so I am planning to discharge her to go home, follow-up with PCP and cardiology. Her thyroid issue needs close follow-up with PCP and endocrinology. Subjective: No chest pain. shortness of breath with activity improved. No nausea or vomiting. No abdominal pain. No obvious bleeding. Looks comfortable in the bed. No dizziness. Feels ready to go home. Objective: General appearance: Alert and comfortable CVS: Normal S1 and S2 Lungs: Clear to auscultation bilaterally Abdomen: Soft, bowel sounds present, no tenderness Extremities: No lower extremity edema Vital Signs/Physical Exam: Temp Pulse Resp BP Pulse Ox 97.6 F 80 14 108/72 97 09/02/24 08:00 09/02/24 08:00 09/02/24 08:00 09/02/24 08:00 09/02/24 08:00 Laboratory Data at Discharge: WBC 7.70 thou/uL (4.3-10.9) 09/02/24 06:09 Hgb 13.7 g/dL (12.0-15.0) 09/02/24 06:09 Hct 40.8 % (36.0-45.0) 09/02/24 06:09 Plt Count 259 thou/uL (152-406) 09/02/24 06:09 PT 11.4 SECONDS (10-13.0) 08/25/24 10:15 INR 1.00 08/25/24 10:15 APTT 27.7 SECONDS (27.2-37.4) 08/25/24 10:15 Sodium 139 mEq/L (136-145) 09/02/24 06:09 Potassium 4.1 mEq/L (3.5-5.1) D 09/02/24 06:09 BUN 16 mg/dL (7-18) 09/02/24 06:09 Creatinine 0.71 mg/dL (0.55-1.02) 09/02/24 06:09 Glucose 116 mg/dL (74-106) H 09/02/24 06:09 Phosphorus 2.9 mg/dL (2.5-4.9) 09/02/24 06:09 Magnesium 1.9 mg/dL (1.6-2.4) 09/02/24 06:09 Total Bilirubin 1.0 mg/dL (0.2-1.0) 08/25/24 10:15 Total Bilirubin Cancelled 08/25/24 10:15 AST 20 U/L (15-37) 08/25/24 10:15 AST Cancelled 08/25/24 10:15 ALT 27 U/L (13-56) 08/25/24 10:15 ALT Cancelled 08/25/24 10:15 Alkaline Phosphatase 73 U/L (45-117) 08/25/24 10:15 Alkaline Phosphatase Cancelled 08/25/24 10:15 Triglycerides 71 mg/dL (<150) 08/26/24 05:53 Cholesterol 152 mg/dL (<200) 08/26/24 05:53 HDL Cholesterol 53 mg/dL (40-60) 08/26/24 05:53 Cholesterol/HDL Ratio 2.87 08/26/24 05:53 Home Medications: Aspirin 81 mg PO DAILY 05/31/20 Mv-Min/Iron/Folic/Calcium/Vitk [Women's Multivitamin Tablet] 1 each PO DAILY 05/31/20 methIMAzole [Tapazole] 5 mg PO DAILY 05/31/20 Atorvastatin Calcium [Lipitor] 40 mg PO BEDTIME #30 tab 09/02/24 Furosemide [Lasix*] 20 mg PO DAILY #30 tab 09/02/24 Metoprolol Succinate [Toprol Xl*] 12.5 mg PO [id number] #30 tab 09/02/24 Sacubitril/Valsartan [Entresto 24 mg-26 mg Tablet] 1 tab PO BID #60 tab 09/02/24 Spironolactone [Aldactone*] 12.5 mg PO DAILY #30 tab 09/02/24 Ticagrelor [Brilinta*] 90 mg PO BID #60 tab 09/02/24 New Medications: Spironolactone [Aldactone*] 12.5 mg PO DAILY #30 tab Ticagrelor [Brilinta*] 90 mg PO BID #60 tab Sacubitril/Valsartan [Entresto 24 mg-26 mg Tablet] 1 tab PO BID #60 tab Furosemide [Lasix*] 20 mg PO DAILY #30 tab Atorvastatin Calcium [Lipitor] 40 mg PO BEDTIME #30 tab Metoprolol Succinate [Toprol Xl*] 12.5 mg PO [id number] #30 tab Diet: AHA Activity: Ad huong Followup: NONE,NONE [Primary Care Provider] - 2-3 Days (f/u with PCP in 3-5 days with CBC, CMP and thyroid profile) Hilario Bazzi MD [ACTIVE - CAN ADMIT] - 1 Week Time spent managing pt's care (in minutes): 35
[2024-09-02 12:06] VITALS: O2SAT 99
[2024-09-02 12:08] VITALS: BP 98/62; TEMP 97.4
== END 2024-09-02 14:44 | disposition home health service (06) | DRG 981 ==
LOC: ER 10:06 → ERHOLD 13:07 → 4TH 16:20
PROVIDERS: ADMIT Internal Medicine; ATTEND Hospitalist
PROC: 4A033R1 Measurement of Arterial Saturation, Peripheral, Percutaneous Approach (ICD-10-PCS; 2024-08-25)
PROC: 5A09357 Assistance with Respiratory Ventilation, Less than 24 Consecutive Hours, Continuous Positive Airway Pressure (ICD-10-PCS; 2024-08-25)
PROC: 027034Z Dilation of Coronary Artery, One Artery with Drug-eluting Intraluminal Device, Percutaneous Approach (ICD-10-PCS; principal; 2024-08-30)
PROC: 4A023N7 Measurement of Cardiac Sampling and Pressure, Left Heart, Percutaneous Approach (ICD-10-PCS; 2024-08-30)
PROC: B2111ZZ Fluoroscopy of Multiple Coronary Arteries using Low Osmolar Contrast (ICD-10-PCS; 2024-08-30)
DX: J96.01 Acute respiratory failure with hypoxia (principal); I50.23 Acute on chronic systolic (congestive) heart failure; J18.9 Pneumonia, unspecified organism; E87.20 Acidosis, unspecified; J96.02 Acute respiratory failure with hypercapnia; I11.0 Hypertensive heart disease with heart failure; E87.6 Hypokalemia; E03.9 Hypothyroidism, unspecified; I25.10 Atherosclerotic heart disease of native coronary artery without angina pectoris; Z79.82 Long term (current) use of aspirin; Z79.899 Other long term (current) drug therapy
CPT/HCPCS: 36415; 36600; 71045; 71046; 71250; 76937; 80048; 80053; 80061; 82805; 83605; 83735; 83880; 84100; 84439; 84443; 84484; 85025; 85610; 85730; 87040; 93005; 93306; 93454; 94640; 94660; 96374; 97110; 97116; 97161; 97165; 97530; 99152; 99153; 99285; A4216; C1725; C1877; C1893; C9600; J0461; J0696; J1644; J1650; J1938; J2003; J2250; J2310; J3010; J3480; J7030; J7040; J7613; Q9967